=== PATIENT | male | born 1945 | race Caucasian/White ===

== ENCOUNTER 2024-05-20 16:04 | Inpatient (IN) | payer OTHER, SELFPAY ==
[2024-05-20] VITALS (31 sets, daily range): BP systolic 129–227; BP diastolic 78–126; BMI 18.6; BMI 19.1
[2024-05-20 12:03] LABS: Glucose - Point of Care 138 mg/dl (70-99)
--- NOTE | 2024-05-20 12:12 | CON.NEURO ---
Consultation
Order
Date of Consultation: 05/20/24
Requesting Provider: Jake Mitchell DO
Reason for Consult: Stroke alert
Prehospital notification: 11:58 AM.
Neurology Consultation Note.
HPI: This is a 78-year-old man who presented to [facility] on 05/20/2024 with seizure. According to EMS the patient was at the car repair and was witnessed to have a seizure with associated left-sided weakness and right gaze deviation
within half an hour before hospital arrival. According to Espinoza the patient was seen in usual state of health in the morning around 9�10 AM before he left. No reports of epilepsy, prior seizures recently stopped medications of head trauma
VS by EMS: 109/100, 90, 24, FS: 13
ER VS: 171/98, 97-108, 92% on nonrebreather
EKG: NSR, QTc Int : 440 ms
PDMP: none
Labs: Glucose�138, WBCs�11.7, normal sodium, CO2�13, creatinine�1.3, normal LFTs, troponin.
CT head wo contrast- 2 mm punctate area of hyperdensity at the davis-white junction of the right parietal lobe suspicious for petechial hemorrhage. There is sulcal effacement in the right temporoparietal junction suspicious for subacute infarct.
There is moderate diffuse cortical atrophy.
CTA head/neck no LVO, dissection, malformations or aneurysms.
PMH: prostate CA, HTN, DLP, OA, nicotine addiction, COPD,
PSH: Bilateral cataract surgery, radical prostatectomy, cholecystectomy, hernia repair, tonsillectomy
SH:, active smoker
FH: Not pertinent to current presentation
All:NKDA
ROS: Unable due to encephalopathy
General: Well developed. In no acute distress.
Cardio: Regular rate and rhythm without murmur. Extremities are without cyanosis or edema.
Neuro:
Mental Status: Awake, does not attend or follow requests. No verbal output
Cranial Nerves: Orthophoric primary gaze. No blink to threat. No clear facial weakness.
Motor: Moves all limbs antigravity left less than the right nonpurposefuly
Sensory: Unable to assess due to poor attention
Coordination: No tremors myoclonic movements
Gait: deferred
Assessment and Plan:
I. 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 Not a candidate for IV TNK due to subacute infarct, microhemorrhages and seizure.
II. Multifactorial encephalopathy (postictal, vascular, metabolic)
III. Hypertensive emergency
-Telemetry monitoring
-Cautious lowering of BP by approximately 15 % during the first 24 hours is SBP >220 mmHg or diastolic blood pressure >120 mmHg;
-Restart antihypertensive medications during if BP>140/90 mmHg who are neurologically stable in 24 to 48 hours after stroke onset;
-Seizure precautions
-Avoid medications known to lower seizure threshold
-Thiamine IV
-Please check magnesium, phosphorus, CK, urinalysis, urine tox
-Brain MRI without ciara
-Routine EEG
-Keppra load 2 g IV once followed by Keppra 750 mg twice daily IV
-Ativan 2 mg IV as needed for GTC's lasting over 2 minutes with associated hypoxia
-SCDs/TEDs
I personally reviewed all radiology and labs along with past medical records pertinent to current medical problems. Total time spent in patient care is 60 minutes.
Thank you for allowing us to participate in the care of this patient. We will continue to follow. Please do not hesitate to contact us with any questions or concerns.
Subjective/Objective
Subjective Data
Date of Service: May 20, 2024
Objective Data
Vital Signs
Pulse Resp Pulse Ox
99 27 93
05/20/24 12:05 05/20/24 12:05 05/20/24 12:05
Patient Allergies
No Allergy Information Available Allergy (Verified 05/20/24 12:08)
Medications
-
Home Medications
�Medication �Instructions �Recorded
atorvastatin 20 mg tablet (Lipitor) 20 mg PO QPM 05/20/24
azithromycin 250 mg tablet 250 mg PO Q48H 05/20/24
gabapentin 300 mg capsule 300 mg PO HS 05/20/24
meloxicam 15 mg tablet 15 mg PO DAILY 05/20/24
omeprazole 20 mg tablet,delayed 20 mg PO DAILY 05/20/24
release
umeclidinium 62.5 mcg/actuation 1 inh inhalation R DAILY 05/20/24
blister powder for inhalation
(Incruse Ellipta)
[2024-05-20] MEDS: ATIVAN 1 MG IV ×4 (12:15→19:57)
--- NOTE | 2024-05-20 12:15 | ED.CVA ---
History of Present Illness
General
Chief Complaint: CVA/TIA Symptoms
Source: ambulance crew
Exam Limitations: clinical condition
Time Seen by Provider: 05/20/24 12:03
Onset of Stroke Symptoms
Onset of symptoms known: Yes
Date of onset of symptoms: 05/20/24
History of Present Illness
History of Present Illness:
See MDM
Past History
Past History
ED Past Medical History: Hypercholesterolemia
ED Past Surgical History: None
Social History
Tobacco: Non-smoker
Alcohol: None
Phy Exam
Physical Exam
Physical Exam:
See MDM
Course
Orders/Labs/Results
Orders:
Orders
05/20/24 12:03
CT HEAD STROKE ALERT W/o Cont Urgent
Comment:
Reason For Exam: seizure and left hemiparesis
CT HEAD/NECK ANG STROKE ALERT Urgent
Comment:
Reason For Exam: seizure and left hemiparesis
NEUROLOGY CONSULT Urgent
Consulting Provider: Chiquita Royal
Was physician already notified: Yes
05/20/24 12:04
Electrocardiogram (*1) Stat
Reason for Study: Other
Other Reason for Exam: neuro symptoms
EKG- Treatment ONCE
05/20/24 12:14
Lorazepam [Ativan] 1 mg IV NOW STA
Lorazepam [Ativan] 2 mg .ROUTE .STK-MED ONE
05/20/24 12:23
Complete Blood Count/With Diff Urgent
Comprehensive Metabolic Panel Urgent
PTT Urgent
Prothrombin Time Urgent
Troponin I Urgent
05/20/24 12:27
Labetalol HCl [Trandate] 10 mg IV NOW STA
Levetiracetam Injectable [Keppra] 2,000 mg IV NOW STA
05/20/24 13:13
EEG Routine Routine
Reason for Exam: Seizure
05/20/24 13:15
Urinalysis Routine
Date Specimen was Collected: 05/20/24
Time Specimen was Collected: 13:16
Urine Drug Abuse Screen Routine
Date Specimen was Collected: 05/20/24
Time Specimen was Collected: 13:16
05/20/24 13:24
Magnesium Routine
Prolactin Routine
Total CK [Creatine Phosphokinase] Routine
05/20/24 13:28
MRI Brain [MR Brain Without Contrast] Routine
Comment:
Reason For Exam: stroke, seizure
OK for patient to be off Cardiac Monitoring for MRI: No
Recent pill cam endoscopy?: No
05/20/24 13:30
Echo 2D MMode Color/Doppler Routine
Reason for Study: Thrombotic source for stroke-like sxs
05/20/24 13:31
Lipid Profile [Cardiovascular Evaluation] Routine
05/20/24 13:32
Hemoglobin A1c [Glycohemoglobin (HgbA1c)] Routine
05/20/24 14:00
Nicotine [Nicoderm Transdermal] 21 mg TRANSDERM DAILY
Thiamine Injection 100 mg IV DAILY
05/20/24 20:00
Levetiracetam Injectable [Keppra] 750 mg IV Q12
Abnormal Lab Results
05/20/24 05/20/24 05/20/24
12:02 12:23 13:24
WBC 11.7 H 10^3/uL
(4.8-10.8)
MCHC 32.1 L g/dL
(33.0-37.0)
RDW 14.6 H %
(11.5-14.5)
Absolute Neuts (auto) 8.3 H 10^3/uL
(1.4-6.5)
Carbon Dioxide 13 L* mmol/L
(22-30)
BUN 23 H mg/dl
(9-20)
Glucose 154 H mg/dl
(70-99)
Prolactin 23.5 H ng/ml
(3.7-17.9)
POC Glucose 138 H mg/dl
(70-99)
05/20/24 12:23
05/20/24 12:23
Vital Signs
Initial and Last Documented VS:
Initial Vital Signs
Pulse Resp Pulse Ox
97 25 92
05/20/24 12:04 05/20/24 12:04 05/20/24 12:04
Last Documented Vital Signs
Temp Pulse Resp BP Pulse Ox
97.4 F 89 23 138/93 96
05/20/24 14:07 05/20/24 14:00 05/20/24 14:00 05/20/24 14:00 05/20/24 13:45
MDM/Problems Addressed
Differential Diagnosis Includes:
HPI and MDM Narrative:
78-year-old male presenting by EMS with potential stroke versus new onset seizure. Not much is known about the patient. He was at the [facility] and he had a witnessed seizure. Patient is minimally responsive and has left hemiparesis. Prearrival
stroke alert called. On arrival, patient met by myself, respiratory, nursing and neurology
On arrival, patient started to move his left hand which is new per EMS. He is confused with what appears to be a right gaze palsy. Patient sent to CT medial
Physical exam
General: Confused and combative. Not following commands
HEENT: protecting airway. Right gaze palsy with pupils equal and reactive
Neck: appears supple
CV: No evidence of cyanosis. Regular rate and rhythm
Resp: No accessory muscle use
Abd: Non-distended
Extremities: No deformities
Neuro: Awake not following commands. Decreased movement on the left side
Psych: Flat affect
Skin: Intact
Problems Addressed including Acute and Chronic Conditions affecting care:
1. Strokelike symptoms versus seizure
Acuity: acute
Prognosis: unstable
Details: CT head shows possible punctate hemorrhage versus calcification. Symptoms are improving while in the emergency department. Because of this questionable hemorrhage, patient is not a TNK candidate.
2. Hypertension
Acuity: acute
Prognosis: unstable
Details: Will continue to monitor. He was initially ordered IV labetalol but blood pressure improving on its own and it was held
3. [ ]
Acuity: acute
Prognosis: stable
Details:
4. [ ]
Acuity: acute
Prognosis: stable
Details:
5. [ ]
Acuity:
Prognosis:
Details:
Updates
12:15 PM patient becoming extremely agitated requiring IV Ativan
12:25 PM radiology initially read the Noncon CT as nonspecific and no acute abnormalities. However, radiology called immediately afterwards indicating that there is a slight possibility of a punctate hemorrhage. This was relayed to neurology. We
will not start TNK. Will start Keppra and labetalol
Symptoms are improving. It is possible that this is all related to new onset seizure. Will give dose of IV Keppra
Differential Diagnosis (but not limited to): Stroke, new onset seizure
Testing considered: UDS
Drug therapy (if applicable): OTC meds, please see d/c instruction regarding Rx drugs
Amount and/or Complexity of Data Reviewed
Clinical info obtained from: EMS
External data reviewed: N/A
Labs I independently reviewed (but not limited to): [ ]
Radiology: The CT scan was personally and independently reviewed. In addition, official CT report reviewed.
Pulse Ox: not hypoxic
EKG independently reviewed: Sinus rhythm, PVCs, normal axis
Carburetor Specialist: Sinus rhythm
Critical Care: The high probability of a clinically significant, sudden or life threatening deterioration of the neurovascular system(s) required my full and direct attention, intervention and personal management. The aggregate critical care time
was 33 minutes. This time is in addition to time spent performing reported procedures but includes the following:
[x] Data Review and interpretation
[x] Patient assessment and monitoring of vital signs
[x] Documentation
[x] Medication orders and management
Risk of Complication:
Social Determinants of health: Good social support
Discussed with other providers: Neurology, hospitalist
Escalation of Care includes Admit/Obs: After being observed in the Emergency Department, pt stable for discharge.
Occasional wrong word or 'sound a like' substitutions may have occurred due to the inherent limitations of voice recognition software. Read the chart carefully and recognize, using context, where substitutions have occurred.
*Critical Care Note
Total Time (30-74mins, 75-104mins- exclusive of procedures): 33 min
ED Attending Note
-
Portions of this chart may have been created with voice recognition software.� Occasional wrong word or��sound alike� substitutions may have occurred due to the inherent limitations of voice recognition software.
Discharge Plan
Departure
Patient Disposition: Admit
Date of Disposition: 05/20/24
Time of Disposition: 13:20
Admit to: Med/Surg
Presentation/result/management discussed w/ accepting MD/DO: Hospitalist
Discharge Problem:
New onset seizure
Prescriptions:
No Action
atorvastatin [Lipitor] 20 mg Tablet
20 mg PO QPM
azithromycin 250 mg Tablet
250 mg PO Q48H
meloxicam [Mobic] 15 mg Tablet
15 mg PO DAILY
gabapentin 300 mg Capsule
300 mg PO HS
omeprazole 20 mg Tablet,Delayed Release (Dr/Ec)
20 mg PO DAILY
Incruse Ellipta 62.5 mcg/actuation Blister With Device
1 inh INHALATION R DAILY
Referrals:
Tobi Robles PA-C [Family Provider] -
Interventions
Interventions:
*Risk Screen - Suicide Last Done: 05/20/24 12:47
*General Assessment Last Done: 05/20/24 12:44
*Neglect/Abuse Screening Last Done: 05/20/24 12:47
*ED COVID-19 Vaccine History Last Done: 05/20/24 12:44
ED- Pulmonary Assessment Last Done: 05/20/24 12:15
ED- Neurological Assessment Last Done: 05/20/24 12:15
ED- Cardiac Assessment Last Done: 05/20/24 12:15
Discharge Date and Time
Print Language: CROATIAN
[2024-05-20] MEDS: KEPPRA 2000 MG IV (12:32)
[2024-05-20 12:36] LABS: % Basophils 0.8 % (0-2); % Eosinophils 1.2 % (0-6); % Immature Granulocytes 0.3 % (0-0.5); % Lymphocytes 22.4 % (20.5-51.1); % Neutrophils 70.3 % (42.2-75.2); Absolute Basophils 0.1 10^3/uL (0-0.2); Absolute Eosinophils 0.1 10^3/uL (0-0.7); Absolute Lymphocytes 2.6 10^3/uL (1.2-3.4); Absolute Monocytes 0.6 10^3/uL (0.1-0.6); Absolute Neutrophils 8.3 10^3/uL (1.4-6.5); Hematocrit 44.2 % (39.0-52.0); Hemoglobin 14.2 g/dL (13.0-18.0); Mean Corp Hgb Conc. 32.1 g/dL (33.0-37.0); Mean Corpuscular Hgb 29.2 pg (27.0-31.0); Mean Corpuscular Volume 90.8 fL (80.0-94.0); Mean Platelet Volume 8.8 fL (7.4-10.4); Nucleated Red Blood Cells % 0 % (-); Platelet Count 270 10^3/uL (130-400); Red Blood Cell Count 4.87 10^6/uL (4.70-6.10); Red Cell Dist. Width 14.6 % (11.5-14.5); White Blood Cell Count 11.7 10^3/uL (4.8-10.8)
[2024-05-20 12:41] LABS: INR 1.04; PT 14.1 Sec (11.4-14.6)
[2024-05-20 12:42] LABS: APTT 31.9 Sec (23.4-35.0)
[2024-05-20 12:52] LABS: AST (SGOT) 21 U/L (17-59); Albumin 4.1 g/dl (3.5-5.0); Alkaline Phosphatase 94 U/L (38-126); Blood Urea Nitrogen 23 mg/dl (9-20); Calcium 8.8 mg/dl (8.4-10.2); Carbon Dioxide 13 mmol/L (22-30); Chloride 103 mmol/L (98-107); Estimated Creatinine Clearance 40 ml/min; Glucose 154 mg/dl (70-99); Potassium 3.8 mmol/L (3.5-5.1); Sodium 138 mmol/L (135-145); Total Bilirubin 0.4 mg/dl (0.2-1.3); Total Protein 7.3 g/dl (6.3-8.2); eGFR 56.58
[2024-05-20 12:53] LABS: Troponin I < 0.012 ng/ml
[2024-05-20 13:03] LABS: ALT (SGPT) < 30 U/L (0-50)
--- NOTE | 2024-05-20 13:48 | HPS.HSE ---
Family Physician
-
Family Physician: OMER SMITH PA-C
Chief Complaint
-
Seizure, confusion
History of Present Illness
78-year-old male male from [place]. I spoke with one of the repair guys named Derrick who states Mook was sitting down in a chair looking red and somewhat confused. He asked him to try to move his legs but he was having difficulty
following commands he then stood up and was saying he was fine however he was hanging on the counter as if he was going to fall he was complaining of dizziness and mentioned that he had been having dizziness ongoing for several weeks. He started to
fall to the floor so Derrick and another [employer] shop member picked him up by his pants and placed him in a chair. Shortly after they noticed that his hands started stiffening they picked him up and laid him on the floor where both hands and legs
started stiffening and shaking lasting approximately 15 minutes until EMS arrived when Kofi states he was snoring. His [place] is at bedside and states he has no history of stroke or epilepsy. She reports 3 weeks ago he complained of
bilateral temporal headache for which he took Motrin and she believes it relieved the pain. He does not suffer from chronic headaches. She states he has a chronic smoker's cough he smokes 1 pack a day for the past 62 years. She states he has been
sneezing for the past several weeks also. He has not complained of any recent sore throat, fever, chills, chest pain, palpitations, shortness breath, abdominal pain, nausea, vomiting, diarrhea, urinary symptoms. She denies any recent illness, head
trauma seizures, epilepsy. She reports he has history of neuropathy bilateral feet he was taking Motrin 400 mg 3 times a day for the past 7 years recently switched in the past 4 months to Mobic 15 mg daily and gabapentin however he still takes
Motrin when he wants she states.
According to his Mrs. 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 He has past medical history of active smoker, COPD, HLD, neuropathy bilateral feet, prostate cancer status post
prostatectomy 2004,
Medical History
Past Medical History
Past Medical History: Reports Other
Additional Past Medical History:
COPD on chronic azithromycin 250 every 48 H
Active smoker
HLD
Neuropathy bilateral feet
GERD
Prostate cancer status post prostatectomy 2004
Past Surgical History: Reports Other
Additional Past Surgical History:
Tonsillectomy
Appendectomy
Cholecystectomy
Hernia repair unknown if abdomen or groin
Prostatectomy status post prostate cancer 2004
Cataract extraction with lens implants bilateral
Social History
Tobacco: Smoker (1 pack/day 62 years)
Alcohol: None
Drug: None
Personal:
Living: With Family ( [place])
Employment: Retired
Family History
Family History: Other (Mother CHF in her 80s, father CHF in 80s, 1 sister brain CA, CVA, DM 2 age 69, 1 brother living DM2, 2 brothers and 2 sisters alive in their 70s unsure medical problems)
Allergies / Home Medications
Allergies reflects when Allergies were last updated in [facility].
Home Medications with original date entered in [facility]
Allergy/Medication List:
Allergies
Allergy/AdvReac Type Severity Reaction Status Date / Time
No Known Allergies Allergy Verified 05/20/24 12:48
Home Medications
Motrin 400 mg PO TID 05/20/24
Motrin PM 200 mg PO HS PRN legpain 05/20/24
atorvastatin 20 mg tablet (Lipitor) 20 mg PO QPM 05/20/24
azithromycin 250 mg tablet 250 mg PO Q48H 05/20/24
diphenhydramine HCl 38 mg PO HS PRN foot pain 05/20/24
gabapentin 300 mg capsule 300 mg PO HS 05/20/24
meloxicam 15 mg tablet 15 mg PO DAILY 05/20/24
omeprazole 20 mg tablet,delayed release 20 mg PO DAILY 05/20/24
umeclidinium 62.5 mcg/actuation blister powder for inhalation (Incruse Ellipta) 1 inh inhalation R DAILY 05/20/24
Review of Systems
-
History Source: Family ( [place]) and Other (Worker at [employer] auto named Kofi)
A 12 point ROS was completed and negative except as noted: Yes
Constitutional: Reports Fatigue; Denies Fever or Chills
EENT: Reports Other (Hands and legs became rigid at [employer] shop lasting 15 minutes with prior confusion and dizziness); Denies Sore Throat or Runny Nose
Respiratory: Reports Cough; Denies Trouble Breathing
Cardiac: Denies Chest Pain, Diaphoresis, Palpitations or Syncope
Abdomen/GI: Denies Abdominal Pain, Nausea, Vomiting or Diarrhea
: Denies Dysuria, Frequency, Flank Pain, Incontinence or Difficulty Voiding
Musculoskeletal: Denies Joint Pain or Edema
Skin: Denies Itching or Rash
Neurological: Reports Dizzy; Denies Headache or Weakness
Endocrine: Reports No Symptoms
Hematologic/Lymphatic: Reports No Symptoms
Physical Exam
Vital Signs
Vital Signs
Pulse Resp BP Pulse Ox
85 19 141/86 98
05/20/24 13:30 05/20/24 13:30 05/20/24 13:30 05/20/24 13:30
Physical Exam
General: Conversant and Other (Confused, agitated trying to pull off EEG leads, heart monitor leads asking repetitive questions does know his name and [place] does not recall earlier events of today); No Fever or Chills
HEENT: NormoCephalic, Anicteric, Moist mucous membranes, PERRLA, Byars Conjunctivae, No Ptosis and Other (Appears to have left-sided neglect difficult to follow review of systems or EOMs due to confusion); No Thrush
Respiratory: Clear and Rhonchi (Bilaterally throughout both lung frost); No Wheezes or Rales
Cardiac: S1/S2 and Regular Rhythm; No Murmur, Rub, Gallop or Peripheral Edema
Breast: Deferred by me
GI: Soft, Non Tender, Non Distended, Normal Bowel Sounds and No Hepatosplenomegaly
Rectal: Deferred by Provider
Genito-urinary: Deferred by me
Musculoskeletal: No Clubbing, No Cyanosis and No Edema
Skin: Warm and Dry; No Rash or Jaundice
Neuro: Awake, Alert (Confused does know his name, 's name asks repetitive questions difficulty following review of systems appears to have left-sided neglect visually but is moving all extremities with 5 out of 5 upper and lower strength),
Cranial Nerves Intact and No Sensory Deficits; No Slurred Speech, Facial Droop, Tremors or Sedated
Psych: Confused and Agitated
Laboratory Results
-
05/20/24 12:23
05/20/24 12:23
Laboratory Results
PT 14.1 Sec (11.4-14.6) 05/20/24 12:
INR 1.04 05/20/24 12:23
APTT 31.9 Sec (23.4-35.0) 05/20/24 12:23
Total Bilirubin 0.4 mg/dl (0.2-1.3) 05/20/24 12:23
AST 21 U/L (17-59) 05/20/24 12:23
ALT < 30 U/L (0-50) 05/20/24 12:23
Alkaline Phosphatase 94 U/L (38-126) 05/20/24 12:23
Troponin I < 0.012 ng/ml 05/20/24 12:23
Impression/Plan
-
Impression/plan:
Admit to IMU
#Acute stroke with acute seizure-
#Metabolic acidosis secondary to likely seizure activity
-Consult neurology
-EEG completed at bedside
--MRI brain without contrast
-2D echo
-Lipid profile, HgbA1c
-UA IT NETWORK ADMINISTRATOR, UDS, influenza, COVID swab
-Check CXR
-IV Keppra 2000 mg given in ER continue Keppra 750 mg IV twice daily
-Patient agitated requiring IV Ativan
-Speech swallow eval
-Consult PT/OT/case management
-Hold Motrin 400 mg 3 times daily, Mobic [address] head wo contrast- 2 mm punctate area of hyperdensity at the davis-white junction of the RIGHT PARITEAL suspicious for Petechial hemorrhage.
There is sulcal effacement in the right temporoparietal junction suspicious for subacute infarct.
There is moderate diffuse cortical atrophy.
CTA head/neck no LVO, dissection, malformations or aneurysms.
#COPD on chronic azithromycin
-Patient follows with [place] [facility]
-Continue Incruse Ellipta
-Patient on chronic azithromycin to 50 mg p.o. every 48 H
#Snoring with multiple episodes stopping breathing at night per concern for sleep apnea
-Recommend follow-up with patient's cartridge feeder for sleep study
#Nicotine abuse
62-year 1 pack/day smoker
-NicoDerm 21 mg transdermal patch
#HLD
-Check lipid profile
-Continue atorvastatin 20 mg every afternoon
#Neuropathy bilateral feet
Continue gabapentin 300 mg at bedtime
-Hold Motrin 400 mg 3 times daily
-Hold Motrin PM 200-38 mg Benadryl
-Hold Mobic 15 mg daily
#GERD-continue omeprazole 20 mg daily
DVT prophylaxis
SCDs
DNR per [place] at bedside
[2024-05-20 13:50] LABS: Creatine Phosphokinase 61 U/L (55-170)
[2024-05-20 13:51] LABS: Magnesium 1.8 mg/dl (1.6-2.3)
[2024-05-20 14:05] LABS: Prolactin 23.5 ng/ml (3.7-17.9)
--- NOTE | 2024-05-20 14:14 | W.PN.UPDATE ---
Update Note
Progress Note Update
This is an addendum to H&P written by NOTE TELLER Doretha Mccartney
I saw and examined the patient.
The NOTE TELLER's note was reviewed and I agree with the note.
Comment:
Mr. Mook Doran is a 78 yo man with hx HLD presents to the ER with new onset seizure.
Triage vitals stable. Labs with WBC 11.7, Hg 14.2, PLT 270, Na 138, K+ 3.8, Cl 103, CO2 13; AG = 22, BUN 23, Cr 1.3, Glucose 154, Ca 8.8, Mag 1.8 , prolactin 23.5.
On exam patient is awake, CECIL, moving all extremities but not follow commands. He is confused and not oriented to place.
CT Head:
IMPRESSION:
There is a 2 mm punctate area of hyperdensity at the davis-white junction of the right parietal lobe suspicious for petechial hemorrhage.
There is sulcal effacement in the right temporoparietal junction suspicious for subacute infarct.
There is moderate diffuse cortical atrophy with extensive nonspecific white matter changes as described above.
Head/Neck CTA
IMPRESSION:
There are no vascular abnormalities.
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
MAR: IV Labetalol, Keppra 2G x 1, Ativan 1mg IV x 1
New onset Seizure
Subacute MCA Territory stroke
Concern for 2mm petechial hemorrhage right parietal lobe
-appreciate neurology
-not a TNK candidate 2/2 subacute infarct and possible finding petechial hemorrhage
-admit to IMU
-seizure precautions and neuro checks
-s/p 2G IV Keppra load followed by 750mg IV q12
-hold off on anti-PLT until MRI complete to confirm if hemorrhage versus calcification - discussed with neurology
-ativan PRN
-MRI with [place] ordered
-Routine EEG
Anion Gap metabolic Acidosis
-likely elevated lactate in setting of convulsive seizure - will obtain lactate now and trend
DVT PPx SCD
DNR
76 minutes spent on patient care
[2024-05-20] MEDS: NSS (PRESERVATIVE FREE) 0.5 ML IV (14:35)
--- NOTE | 2024-05-20 14:52 | W.PN.UPDATE ---
Update Note
Progress Note Update
Asked to review imaging on Mr. Bradley
I favor the hyperdensity in his right parietal lobe to represent calcification
No need for transfer
[2024-05-20 15:51] LABS: HDL Cholesterol 50 mg/dl; LDL Cholesterol, Calculated 70 mg/dl; Total Cholesterol 143 mg/dl (50-199); Triglyceride 116 mg/dl (10-149); Very Low Density Lipoprotein 23 mg/dl (0-30)
[2024-05-20] MEDS: THIAMINE INJECTION 100 MG IV (16:22)
[2024-05-20] MEDS: NICODERM TRANSDERMAL 21 MG TRANSDERM (16:24)
--- NOTE | 2024-05-20 16:30 | W.PN.UPDATE ---
Update Note
Progress Note Update
Will upgrade to ICU
-Despite chemical restraint Ativan patient attempting to get out of bed pull at monitor leads is at risk for fall, harm
[2024-05-20 16:39] LABS: COVID-19 Antigen Negative (Negative)
[2024-05-20 16:49] LABS: Urine Albumin Negative (Neg - Trace); Urine Bilirubin Negative (Negative); Urine Character Clear (Clear); Urine Color Yellow; Urine Glucose Negative (Negative); Urine Ketone Negative (Negative); Urine Leukocyte Negative (Negative); Urine Nitrite Negative (Negative); Urine Occult Blood Negative (Negative); Urine Specific Gravity 1.015 (<1.030); Urine Urobilinogen Negative (Neg - 1+); Urine pH 6.5 (5.0-9.0)
[2024-05-20 16:56] LABS: Lactic Acid 1.2 mmol/L (0.7-2.0)
[2024-05-20 17:42] LABS: Amphetamines Negative (Negative); Barbiturates Negative (Negative); Benzodiazepines Negative (Negative); Buprenorphine Negative (Negative); Cocaine Negative (Negative); Marijuana Negative (Negative); Methadone Negative (Negative); Methamphetamines Negative (Negative); Opiates Negative (Negative); Phencyclidine Negative (Negative); Tricyclic Antidepressants Negative (Negative)
--- NOTE | 2024-05-20 18:32 | PTCARENOTE ---
Pt arrived from ED via stretcher. Transferred over to unit bed by staff. Pt able to say 'Alex' when repeatedly asked what his name is. Guessed [facility] for location. Pt unable to follow commands. Restless. Pupils 3mm and reactive to
light. Full strength in all extremities. Pushing and pulling on bed rails. Attempting to remove gown, get out of bed. B/L upper extremity soft limb restraints in place. SaO2 98% on room air. Lungs diminished. Sinus tach on high school coach. No
edema observed. Palpable pedal pulses. B/L pinky toes purple. Cap refill > 2 seconds. Pt with smear of bowel movement upon admission. Condom catheter #25 placed on patient. Left upper extremity #18 with (+) flush and blood return.
[2024-05-20] MEDS: NSS 1000 IV (18:51)
[2024-05-20] MEDS: LIPITOR PO (18:53)
[2024-05-20] MEDS: KEPPRA 750 MG IV (20:03)
--- NOTE | 2024-05-20 20:26 | EEGC.RPT ---
Continuous EEG Report
Recording
Start Date of Data Reviewed: 05/20/24
Done with Video Recording: Yes
Electrocardiogram: Unremarkable
Report
�
TECHNICAL REMARKS:��This is a technically satisfactory eighteen channel record employing 21 disc electrodes applied according to a measured international 10-20 electrode placement system.��There were no significant technical difficulties.��The study
was done on a Realtime Technology System.
STUDY DURATION:
MEDICATIONS: Keppra, lorazepam
CLINICAL HISTORY: This is a 78-year-old man with seizure. This study was requested to look for epileptiform activity.
REPORT: �At the onset of the EEG, the patient is in altered mental status. The background activity consists of 4-4.5 Hz, impersistent, posteriorly dominant, moderate amplitude, symmetric, and rhythmic activity. Continuous generalized, 2-3 Hz, 30-50
uV polymorphic delta activity with admixed generalized excessive beta activity was present.� Stepwise intermittent photic stimulation did not induce additional abnormalities. Hyperventilation was not performed. No epileptiform activity was seen.�
Multiple muscle artifacts were present limited precise characterization of the record.
�
IMPRESSION: �This is an abnormal EEG recorded in the patient in drowsy state due to a moderate to severe generalized slowing. This finding indicates diffuse cerebral dysfunction, nonspecific in terms of etiology.
--- NOTE | 2024-05-20 21:00 | PTCARENOTE ---
On assessment pt AAO to self only, very agitated and restless in bed, confused conversation at time and garbled speech, b/l wrist restraints on per orders, pt attempting to climb out of bed and pull out IV lines and condom catheter. CHEMICAL PRODUCTION MACHINE OPERATOR made aware
and at bedside, PRN meds given see JUL, ST on the monitor, 98% RA, denies pain and SOB when pt is able to respond, L arm skin tear noted, b/l pinky toes purple and b/l lower extremity cool CHEMICAL PRODUCTION MACHINE OPERATOR aware. bed alarm on and call ortega in reach
[2024-05-20] MEDS: NEURONTIN PO (21:06)
[2024-05-20 23:40] LABS: Blood Urea Nitrogen 19 mg/dl (9-20); Calcium 7.3 mg/dl (8.4-10.2); Carbon Dioxide 23 mmol/L (22-30); Chloride 111 mmol/L (98-107); Estimated Creatinine Clearance 53 ml/min; Glucose 97 mg/dl (70-99); Magnesium 1.5 mg/dl (1.6-2.3); Potassium 3.7 mmol/L (3.5-5.1); Sodium 138 mmol/L (135-145); eGFR > 60.00
[2024-05-21] VITALS (20 sets, daily range): BP systolic 121–176; BP diastolic 77–114; BMI 17.9
[2024-05-21] MEDS: LR 1000 IV ×2 (00:04→13:36)
[2024-05-21] MEDS: ATIVAN 1 MG IV (00:04)
[2024-05-21] MEDS: MAGNESIUM SULFATE 50 IV (00:04)
--- NOTE | 2024-05-21 00:30 | PTCARENOTE ---
pt continues to be anxious and restless in bed, PRN ativan given see JUL, bed alarm on and call ortega in reach
[2024-05-21 05:12] LABS: % Basophils 0.6 % (0-2); % Eosinophils 1.6 % (0-6); % Immature Granulocytes 0.3 % (0-0.5); % Lymphocytes 19.2 % (20.5-51.1); % Monocytes 5.3 % (1.7-9.3); Absolute Basophils 0.1 10^3/uL (0-0.2); Absolute Eosinophils 0.2 10^3/uL (0-0.7); Absolute Lymphocytes 2.1 10^3/uL (1.2-3.4); Absolute Monocytes 0.6 10^3/uL (0.1-0.6); Hematocrit 39.9 % (39.0-52.0); Hemoglobin 13.5 g/dL (13.0-18.0); Mean Corp Hgb Conc. 33.8 g/dL (33.0-37.0); Mean Corpuscular Hgb 29.2 pg (27.0-31.0); Mean Corpuscular Volume 86.2 fL (80.0-94.0); Mean Platelet Volume 8.8 fL (7.4-10.4); Nucleated Red Blood Cells % 0 % (-); Platelet Count 208 10^3/uL (130-400); Red Blood Cell Count 4.63 10^6/uL (4.70-6.10); Red Cell Dist. Width 14.2 % (11.5-14.5); White Blood Cell Count 10.9 10^3/uL (4.8-10.8)
[2024-05-21 05:34] LABS: ALT (SGPT) 11 U/L (0-50); AST (SGOT) 23 U/L (17-59); Albumin 3.6 g/dl (3.5-5.0); Alkaline Phosphatase 107 U/L (38-126); Blood Urea Nitrogen 21 mg/dl (9-20); Calcium 8.9 mg/dl (8.4-10.2); Carbon Dioxide 24 mmol/L (22-30); Chloride 105 mmol/L (98-107); Estimated Creatinine Clearance 41 ml/min; Glucose 107 mg/dl (70-99); Magnesium 2.5 mg/dl (1.6-2.3); Potassium 4.3 mmol/L (3.5-5.1); Sodium 138 mmol/L (135-145); Total Bilirubin 0.6 mg/dl (0.2-1.3); Total Protein 6.9 g/dl (6.3-8.2); eGFR > 60.00
--- NOTE | 2024-05-21 06:05 | PTCARENOTE ---
pt was restless most of the night, baseline NIH was 5, EEO OFFICER made aware, pt speaking more clearly but still confused, pt remains in b/l wrist restraints, bed alarm on.
[2024-05-21 06:11] LABS: Vitamin B12 581 pg/ml (239-931)
[2024-05-21] MEDS: NICODERM TRANSDERMAL 21 MG TRANSDERM (07:35)
[2024-05-21] MEDS: KEPPRA 750 MG IV ×2 (07:35→20:52)
[2024-05-21] MEDS: THIAMINE INJECTION 100 MG IV (07:35)
[2024-05-21] MEDS: ZITHROMAX PO (07:36)
--- NOTE | 2024-05-21 07:42 | CON.INTV ---
Consultation
Consultation Request
Date/Time Consultation Requested: 05/21/2024-7:30 AM
Date/Time Consultation Performed: 05/21/2024-7:30 AM
Requesting Provider: Hospitalist
Performing Provider: Dr. Dhaliwal
Reason for Consultation: CVA
Medical History
-
Chief Complaint: CVA/seizure
History of Present Illness:
78-year-old smoking male with underlying COPD followed by Dr. Goldman who also has hyperlipidemia, neuropathy, prostate cancer not feeling well for several weeks who developed confusion, near syncope, and developed seizure lasting possibly 15
minutes found to have CVA and crop quantitative geneticist consulted for CVA/critical care management 05/21/2024. Patient is quite lethargic and possibly postictal and review of systems was unobtainable. No respiratory distress
Past Medical History
Past Medical History: None (COPD. Active cigarette smoker. Hyperlipidemia. Bilateral feet neuropathy. GERD. Prostate cancer/prostatectomy 2004. Tonsillectomy. Appendectomy. Cholecystectomy. Hernia repair. Cataract.)
Social History
Tobacco: Former Smoker ( [id number] ongoing)
Alcohol: None
Drug: None
Personal:
Living: With Family
Occupational Exposures: No known asbestos exposure
Environmental Exposures: No known tuberculosis exposure
Family History
Family History: Other (Mother-CHF. Father-CHF. Sister-brain cancer, CVA and diabetes. Brother-diabetes.)
Allergies / Home Medications
Allergies
Allergy/AdvReac Type Severity Reaction Status Date / Time
No Known Allergies Allergy Verified 05/20/24 12:48
Home Medications
�Medication �Instructions �Recorded �Confirmed �Last Taken �Type
Motrin 400 mg PO TID Pain 05/20/24 05/20/24 Unknown History
Motrin PM 200 mg PO HS PRN legpain 05/20/24 05/20/24 05/19/24 21:00 History
atorvastatin 20 mg tablet (Lipitor) 20 mg PO QPM High Cholesterol 05/20/24 05/20/24 Unknown History
azithromycin 250 mg tablet 250 mg PO Q48H Lung/Breathing 05/20/24 05/20/24 Unknown History
Issues
diphenhydramine HCl 38 mg PO HS PRN foot pain 05/20/24 05/20/24 05/19/24 21:00 History
gabapentin 300 mg capsule 300 mg PO HS Pain 05/20/24 05/20/24 Unknown History
meloxicam 15 mg tablet 15 mg PO DAILY Pain 05/20/24 05/20/24 Unknown History
omeprazole 20 mg tablet,delayed 20 mg PO DAILY Gastrointestinal 05/20/24 05/20/24 Unknown History
release Issue
umeclidinium 62.5 mcg/actuation 1 inh inhalation R DAILY 05/20/24 05/20/24 Unknown History
blister powder for inhalation Lung/Breathing Issues
(Incruse Ellipta)
Review of Systems
-
Unable to Obtain full review of systems at this time due to: Other (Per HPI)
Vitals / Labs / Diagnostic Testing
Vital Signs
Temp Pulse Resp BP Pulse Ox
97.4 F 68 19 141/89 97
05/21/24 07:35 05/21/24 06:00 05/21/24 06:00 05/21/24 06:00 05/21/24 06:00
Lab Data
05/21/24 04:43
05/21/24 04:43
Laboratory Results
05/20/24
12:23
PT 14.1
INR 1.04
APTT 31.9
Microbiology
05/20/24 16:12 Nasal Swab Influenza Types A & B (FARHANA) - Final
Negative for Influenza A & B, NAAT
Negative results must be combined with clinical observations
and patient history.
Nucleic Acid Amplification test (NAAT)performed on the
[email or web address] platform.
Diagnostic Testing:
Physical Exam
-
Exam:
Cachectic elderly gentleman in no apparent distress
HEENT-atraumatic, normocephalic, temporal wasting, cachexia
Neck-supple, no JVD, no bruit
Heart-regular rate and rhythm-systolic murmur
Chest with diminished breath sounds, prolonged expiratory time, no crackles or wheezes
Back without tenderness
Abdomen-soft, nontender, nondistended, no hepatosplenomegaly
Extremities-no cyanosis, clubbing, edema and good peripheral pulses
Integument-intact, no rashes, lesions or ecchymosis
Neurologically lethargic, moving extremities, grossly nonfocal
Assessment
-
78-year-old smoking male with underlying COPD followed by Dr. Goldman who also has hyperlipidemia, neuropathy, prostate cancer not feeling well for several weeks who developed confusion, near syncope, and developed seizure lasting possibly 15
minutes found to have CVA and crop quantitative geneticist consulted for CVA/critical care management 05/21/2024.
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
Acute/subacute right parietal lobe cortical hemorrhage suggestive of amyloid cerebral angiopathy
Symptomatic seizure
Metabolic acidosis
COPD without acute exacerbation
Mild leukocytosis-WBC 11.7
Mild hyperglycemia
DNR
Conditions present prior to admission:
COPD.
Bronchiectasis
Active cigarette smoker.
Hyperlipidemia.
Bilateral feet neuropathy.
GERD.
Prostate cancer/prostatectomy 2004.
Tonsillectomy. Appendectomy. Cholecystectomy. Hernia repair. Cataract.
Plan
Patient critically ill with acute CVA and seizure
Supplemental oxygen
Aspiration precautions
Speech therapy evaluation
Nebulizers if needed-currently not bronchospastic
Chronic azithromycin for his underlying COPD
Neurology evaluation-correspondence reviewed
EEG 05/20/2024-abnormal patient in drowsy state with moderate to severe generalized slowing, no obvious seizures
Keppra 750 mg twice daily
Repeat CT head before initiating aspirin 81 mg daily for stroke prophylaxis
Echocardiogram pending
Cardiology consultation
No driving for 6 months
Smoking cessation counseling
Nicotine patch if needed
Chantix has been offered in the past-states son was suicidal on this medication
Monitor blood sugar
Insulin supplementation as needed
DVT prophylaxis
GI prophylaxis
Nutrition
Physical therapy/occupational/speech therapy
If no progression neurologically and no further seizures the patient could be transferred out of ICU-call pulmonary if respiratory issues arise
Patient last saw Dr. Goldman 10/23/2023-instructed to follow-up in October 2024 with PFTs and 6-minute walk test
Critical care statement: A total of 40 minutes of critical care time was provided for this patient today. This includes management of unstable vital signs, evaluation of the patient at bedside, reviewing the patient's pertinent medical records
including radiographs, microbiology, laboratory evaluations, and discussion with primary team, consultants, pharmacy, nutrition, physical therapy, case management, charge nurse, critical care nursing, and respiratory therapy.
Diagnostic data:
Chest x-ray 05/20/2024-mild diffuse pneumonitis cannot rule out underlying chronic interstitial lung disease
CT head 05/20/24-2 mm hyperdensity at the davis-white junction of the right parietal lobe suspicious for petechial hemorrhage, right temporoparietal junction suspicious for subacute infarct and moderate diffuse atrophy
CT head and neck angiogram 05/20/2024-no vascular anomalies, emphysema with pleural-parenchymal scarring at both lung apices
MRI brain 05/20/2024-small acute lacunar infarct left cerebellum, chronic microhemorrhages primarily involving bilateral cerebral hemisphere suggestive of cerebral amyloid angiopathy
Echocardiogram 11/07/2021-EF 50-55%, mild mitral regurgitation
Holter monitor 10/22/2021-Short SVT-14 beat, occasional ectopy
CT scan of the chest-03/28/21: Images reviewed. No evidence of nodule to suggest malignancy.Stable emphysema.Stable bilateral lower lobe volume loss with bronchiectasis and endobronchial mucus plugging.Other areas of interstitial and nodular mucus
plugging/tree-in-bud opacities which may represent Mycobacterium avium complex..Lung RADS category 1..
CT scan of the chest-03/28/22: Bilateral bronchiectasis. Moderate severity centrilobular and paraseptal emphysema. Peribronchial thickening, airway filling defects and posterior subpleural atelectasis/consolidation redemonstrated. Symmetrical
bronchiectasis in the middle lobe and lingula. Mild severity branching nodular opacities in the posterior right upper lobe. Findings consistent with chronic small airways infectious/inflammatory process..
CT scan of the chest-04/10/23: Report only. Jose. Areas of bronchiectasis and mucus plugging within the right upper lobe mildly WORSE than previously.Right and left lower lobe bronchiectasis with mucus plugging, peribronchial thickening and
subpleural atelectasis/consolidation has IMPROVED since prior examination. Findings consistent with inflammatory/infectious processes.
Pulmonary function studies-04/24/23: Spirometry demonstrated mild obstructive lung disease. This was primarily small airways obstruction. The forced vital capacity was 3.83 L or 99% of predicted. The FEV1 was 2.64 L or 95% of predicted. The FEV1/FVC
ratio was 64% before bronchodilator and 70% after bronchodilator. There was a 7% improvement in the FEV1 postbronchodilator. The lung volumes revealed a normal total lung capacity of 5.9 L or 88% of predicted. The diffusing capacity was severely
reduced at 5.9 L or 24% of predicted.
Data Reviewed
-
PFT: Report reviewed by me
EKG: Report reviewed by me
Radiology: Report reviewed by me
CT Scan: Image personally visualized and interpreted and Report reviewed by me
MRI: Report reviewed by me
Medical Tests (Nuc Med, Echo etc): Image personally visualized and interpreted
Labs: Labs reviewed by me and Discussed with Physician
Old Records: Reviewed
Critical Care Time (in minutes): 55
[2024-05-21] MEDS: SPIRIVA RESPIMAT 2.5 MCG 2 PUFF INH (08:20)
--- NOTE | 2024-05-21 09:37 | PTCARENOTE ---
Addendum entered by Kathleen Avila RN 05/21/24 10:12:
no seizure pads on unit, call to [facility]. pillows placed on side rails for patient safety
Original Note:
report received, assessments per work list. patient lethargic, but arousable after increased stimulation. intermittently trying to climb out of bed, pull at lines. restraints maintained for patient safety.neuro check, NIH per work list. neurologist
in, orders noted. moist productive cough, large amount thick yellow brooks sputum. aspiration precautions maintained. coarse breath sounds. unable to safely administer am medications. abdomen flat, hyperactive bowel sounds. smear of stool. condom cath
in place, draining yellow urine. bed alarm maintained for patient safety. ST in to evaluate patient
--- NOTE | 2024-05-21 10:05 | W.PN.NEURO.1 ---
Today's Communication / Plan
-
.
Subjective/Objective
Subjective Data
Date of Service: May 21, 2024
Neurology follow-up note.
24h events: no recurrent seizures. The patient has been intermittently agitated requiring restraints and Lorazepam 1 mg on 05/20/24 at 16:19, 19:57 and 05/21/24 at 00:04.
VS Tmax�180/126 on 05/20/2024 at 21:46, afebrile
Brain MRI wo [facility](05/20/2024)-small acute lacunar infarct of the left cerebellum, innumerable chronic microhemorrhages primarily involving the bilateral cerebral hemispheres; 2 mm acute to subacute bleed in the right parietal lobe and T2/FLAIR
hyperintensities of the right parietal lobe and bilateral occipital lobe. T2/FLAIR hyperintense signal in the white matter of the right parietal lobe and bilateral occipital lobes. Differential considerations include inflammatory cerebral amyloid
angiopathy, posterior reversible encephalopathy syndrome (PRES), or probably less likely gliosis secondary to chronic infarcts.
Labs: LDL-70, WBC 11.7-, neg ua tox, 10.9, Mg-1.5-2.5, CK�61.
Routine EEG (05/20/2024)�generalized slowing with excessive beta activity.
PMH: prostate CA, HTN, DLP, OA, nicotine addiction, COPD,
PSH: Bilateral cataract surgery, radical prostatectomy, cholecystectomy, hernia repair, tonsillectomy
SH:, active smoker
FH: Not pertinent to current presentation
All:NKDA
ROS: Negative for headache, change in strength, vision or sensation.
General: Well developed. In no acute distress.
Cardio: Regular rate and rhythm without murmur. Extremities are without cyanosis or edema.
Neuro:
Mental Status: Awake, oriented to self, location, month, year. Impaired attention, preserved comprehension. Follows simple requests consistently. Nonfluent. No hemineglect.
Cranial Nerves: Orthophoric primary gaze. Pupils 3 mm, surgical. Extraocular movement intact. Mild right facial weakness, hearing is impaired, minimal dysarthria.
Motor: Moves all limbs antigravity left less than the right nonpurposefuly
Sensory: Unable to assess due to poor attention
Coordination: No tremors myoclonic movements
Gait: deferred
Assessment and Plan:
I. Acute left small SCA territory infarct. 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
II. Acute/subacute right parietal lobe cortical hemorrhage in addition to chronic innumerable bihemispheric microhemorrhages suggestive of amyloid cerebral angiopathy
II. Multifactorial encephalopathy (vascular, toxic), significantly improved
III. Symptomatic seizure
-Telemetry monitoring
-Avoid hypomagnesemia,
-Continue Keppra 750 mg twice daily
-Repeat CT head without contrast known before starting aspirin 81 mg once a day for stroke prophylaxis.
-TTE
-Avoid systemic anticoagulation in view of probable cerebral amyloid angiopathy
-Cardiology consult�Holter monitor
-No driving for 6 months
-SCDs/TEDs
I personally reviewed all radiology and labs along with past medical records pertinent to current medical problems. Total time spent in patient care is 35 minutes.
Thank you for allowing us to participate in the care of this patient. We will continue to follow. Please do not hesitate to contact us with any questions or concerns.
Objective Data
Vital Signs
Temp Pulse Resp BP Pulse Ox
36.3 C 76 19 144/96 97
05/21/24 07:35 05/21/24 08:45 05/21/24 08:45 05/21/24 08:00 05/21/24 08:45
Lab Results
05/21/24 04:43
05/21/24 04:43
PT 14.1 Sec (11.4-14.6) 05/20/24 12:23
INR 1.04 05/20/24 12:23
APTT 31.9 Sec (23.4-35.0) 05/20/24 12:23
Sodium 138 mmol/L (135-145) 05/21/24 04:43
Potassium 4.3 mmol/L (3.5-5.1) 05/21/24 04:43
BUN 21 mg/dl (9-20) H 05/21/24 04:43
Glucose 107 mg/dl (70-99) H 05/21/24 04:43
Calcium 8.9 mg/dl (8.4-10.2) D 05/21/24 04:43
LDL Cholesterol, Calc Cancelled 05/20/24 13:31
Vitamin B12 581 pg/ml (239-931) 05/21/24 04:43
Ur Buprenorphine Negative (Negative) 05/20/24 16:42
Patient Allergies
No Known Allergies Allergy (Verified 05/20/24 12:48)
Vital Signs and Labs
-
Vital Signs and Labs:
Vital Signs
Temp Pulse Resp BP Pulse Ox
36.3 C 76 19 144/96 97
05/21/24 07:35 05/21/24 08:45 05/21/24 08:45 05/21/24 08:00 05/21/24 08:45
Lab Results
05/21/24 04:43
05/21/24 04:43
PT 14.1 Sec (11.4-14.6) 05/20/24 12:23
INR 1.04 05/20/24 12:23
APTT 31.9 Sec (23.4-35.0) 05/20/24 12:23
Sodium 138 mmol/L (135-145) 05/21/24 04:43
Potassium 4.3 mmol/L (3.5-5.1) 05/21/24 04:43
BUN 21 mg/dl (9-20) H 05/21/24 04:43
Glucose 107 mg/dl (70-99) H 05/21/24 04:43
Calcium 8.9 mg/dl (8.4-10.2) D 05/21/24 04:43
LDL Cholesterol, Calc Cancelled 05/20/24 13:31
Vitamin B12 581 pg/ml (327-321) 05/21/24 04:43
Ur Buprenorphine Negative (Negative) 05/20/24 16:42
Medications
-
Medications:
Generic Name Dose Route Start Last Admin
Trade Name Freq PRN Reason Stop Dose Admin
Acetaminophen 650 mg 05/20/24 17:47
Acetaminophen 325 Mg Tablet PO 06/17/24 17:46
Q4HPRN PRN
mild pain/GILMAN/temp> 100.4F
Atorvastatin Calcium 20 mg 05/20/24 18:00 05/20/24 18:53
Atorvastatin (Lipitor) 20 Mg Tablet PO 06/17/24 17:59 Not Given
QPM [facility]
Azithromycin 250 mg 05/21/24 08:00 05/21/24 07:36
Azithromycin 250 Mg Tablet PO Not Given
Q48H [facility]
Gabapentin 300 mg 05/20/24 22:00 05/20/24 21:06
Gabapentin 300 Mg Capsule PO 06/17/24 21:59 Not Given
HS [facility]
Lactated Ringer's 1,000 mls @ 80 mls/hr 05/20/24 23:45 05/21/24 00:04
Lr IV 1,000 mls
.[id number] [facility] Administration
Levetiracetam 750 mg 05/20/24 20:00 05/21/24 07:35
Levetiracetam (100 Mg/Ml) 500 Mg/5 Ml Vial IV 06/17/24 19:59 750 mg
Q12 [facility] Administration
Lorazepam 1 mg 05/20/24 17:47 05/21/24 00:04
Lorazepam 2 Mg/Ml Vial IV 06/17/24 17:46 1 mg
Q4HPRN PRN Administration
Agitation/seizure
Nicotine 21 mg 05/20/24 14:00 05/21/24 07:35
Nicotine 21 Mg Patch TRANSDERM 06/17/24 13:59 21 mg
DAILY [facility] Administration
Ondansetron HCl 4 mg 05/20/24 17:47
Ondansetron 4 Mg/2 Ml Vial IV 06/17/24 17:46
Q6HPRN PRN
nausea and vomiting
Pantoprazole Sodium 40 mg 05/21/24 08:00 05/21/24 07:35
Pantoprazole 40 Mg Delayed Release Tablet PO 06/18/24 07:59 Not Given
DAILY [facility]
Sodium Chloride 0 ml 05/20/24 19:00
Sodium Chloride 0.9% (Preservative Free) 10 Ml Vial IV 06/17/24 18:59
PRN PRN
IV Lorazepam dilution
Protocol
Sodium Chloride 0 flush 05/20/24 19:00
Sodium Chloride 0.9% (Flush) Syringe IV 06/17/24 18:59
PER PROTOCOL [facility]
Thiamine HCl 100 mg 05/20/24 14:00 05/21/24 07:35
Thiamine (100 Mg/Ml) 2 Ml Vial IV 05/22/24 08:01 100 mg
DAILY [facility] Administration
Tiotropium [place] 2 puff 05/21/24 08:00 05/21/24 08:20
Tiotropium (Spiriva Respimat) 2.5 Mcg Inhaler INH 06/18/24 07:59 2 puff
R DAILY [facility] Administration
Protocol
Home Medications
-
Home Medications
Motrin 400 mg PO TID Pain 05/20/24
Motrin PM 200 mg PO HS PRN legpain 05/20/24
atorvastatin 20 mg tablet (Lipitor) 20 mg PO QPM High Cholesterol 05/20/24
azithromycin 250 mg tablet 250 mg PO Q48H Lung/Breathing Issues 05/20/24
diphenhydramine HCl 38 mg PO HS PRN foot pain 05/20/24
gabapentin 300 mg capsule 300 mg PO HS Pain 05/20/24
meloxicam 15 mg tablet 15 mg PO DAILY Pain 05/20/24
omeprazole 20 mg tablet,delayed release 20 mg PO DAILY Gastrointestinal Issue 05/20/24
umeclidinium 62.5 mcg/actuation blister powder for inhalation (Incruse Ellipta) 1 inh inhalation R DAILY Lung/Breathing Issues 05/20/24
--- NOTE | 2024-05-21 10:22 | PTOTSP ---
SPEECH THERAPY SWALLOW AND SPEECH/LANGUAGE/COGNITIVE COMMUNICATION EVALUATION:
Patient exhibits clinical signs of severe oropharyngeal dysphagia, likely [id number] related to subacute Right MCA CVA/focal seizure and multifactorial encephalopathy, and history of COPD/GERD. Patient remains at HIGH RISK for aspiration and
related complications given lethargy and impaired cognitive status at this time. Recommend strict NPO at this time. Non-oral medications. Consider temporary alternate means for nutrition/hydration. ST to follow, re-assess in 24 hours, determine
readiness for oral diet and/or instrumental assessment of swallowing as appropriate.
Patient exhibits moderate-severe receptive/expressive language impairments, mild-moderate speech impairments (dysarthria), and severe cognitive communication impairments characterized by deficits in the following areas: Attention, orientation,
processing speed, auditory comprehension, verbal expression, STM, initiation and elaboration. Impairments are related to subacute Right MCA CVA/seizure and multifactorial encephalopathy, and exacerbated by lethargy. Assessment limited at this time
given lethargy. Recommend continued assessment of higher level cognitive/language skills as lethargy/attention improve. ST to follow at the acute care level, and recommend continued ST services upon discharge.
RECOMMEND:
1) strict NPO
2) Non-oral medications
3) Consider temporary alternate means for nutrition/hydration
4) ST to follow, re-assess in 24 hours, determine readiness for oral diet and/or instrumental assessment of swallowing as appropriate
5) ST to follow for speech/language/cognitive communication therapy
[2024-05-21 10:39] LABS: Glycohemoglobin (HgbA1c) 6.2 % (4.0-5.6)
--- NOTE | 2024-05-21 11:53 | CM ---
CM following re: discharge planning.
Reviewed pt's chart, met with pt. Pt's spouse, son and daughter in law at bedside.
Pt is a 78 year old male, admitted with primary dx of Seizure, acute CVA. Per Rounds meeting, patient lethargic, but arousable after increased stimulation. intermittently trying to climb out of bed, pull at lines. restraints maintained for patient
safety, continue supportive care.
Pt is not a great historian, lethargic, sleeping. Information obtained from pt's family. Pt lives with spouse 2SH, 5 steps to enter, has 3 supportive children. 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 No DME, VN or SNF
history.
PT, OT, ST will evaluate the pt to determine a level of care at discharge.
PCP: Tobi Robles
Pharmacy: [facility]
D/C plan: uncertain at this time and will depend on pt's progress. Probably acute level of rehab.
CM will follow with discharge plan updates as hospitalization progresses
--- NOTE | 2024-05-21 12:05 | CON.INTV ---
Consultation
Consultation Request
Date/Time Consultation Requested: 05/20/24
Date/Time Consultation Performed: 05/21/24
Requesting Provider: SENG Beltran
Performing Provider: Jacqui Ambriz MD
Reason for Consultation: Acute stroke along acute seizure
Medical History
-
History of Present Illness:
The patient is a 78-year-old smoking male with a past medical history of COPD, hyperlipidemia, neuropathy, prostate cancer who presented to ER after developed possibly 15 minutes length seizure. Per patient's friend, at the beginning the patient
seemed confused and then fall down to the floor. Following the patient started stiffening and shaking his both hands and legs about for 15 minutes until EMS has arrived. Per patient's family the patient has no history of stroke or epilepsy but he
has been smoking for past 62 years and has a chronic cough. Brain MRI and Head CT was obtained from the patient which was significant for a small acute lacunar infarct of the left cerebellum and acute/subacute right parietal lobe cortical
hemorrhage. The post graduate internship was consulted for CVA/critical care management 05/21/2024.
Past Medical History
Past Medical History: COPD (on chronic azithromycin 250 every 48 H), GERD, Hypercholesterolemia and Other (Neuropathy bilateral feet, prostat cancer status post prostatectomy 2004 )
Past Surgical History: Other (Tonsillectomy Appendectomy Cholecystectomy Hernia repair unknown if abdomen or groin Prostatectomy status post prostate cancer 2004 Cataract extraction with lens implants bilateral)
Social History
Tobacco: Smoker (Active -[id number] (1 pack/daily))
Alcohol: None
Drug: None
Personal:
Living: With Family
Employment: Retired
Occupational Exposures: No known asbestos exposure
Environmental Exposures: No known tuberculosis exposure
Family History
Family History: Other (Mother CHF in her 80s, father CHF in 80s, 1 sister brain CA, CVA, DM 2 age 69, 1 brother living DM2, 2 brothers and 2 sisters alive in their 70s unsure medical problems)
Allergies / Home Medications
Allergies
Allergy/AdvReac Type Severity Reaction Status Date / Time
No Known Allergies Allergy Verified 05/20/24 12:48
Home Medications
�Medication �Instructions �Recorded �Confirmed �Last Taken �Type
Motrin 400 mg PO TID Pain 05/20/24 05/20/24 Unknown History
Motrin PM 200 mg PO HS PRN legpain 05/20/24 05/20/24 05/19/24 21:00 History
atorvastatin 20 mg tablet (Lipitor) 20 mg PO QPM High Cholesterol 05/20/24 05/20/24 Unknown History
azithromycin 250 mg tablet 250 mg PO Q48H Lung/Breathing 05/20/24 05/20/24 Unknown History
Issues
diphenhydramine HCl 38 mg PO HS PRN foot pain 05/20/24 05/20/24 05/19/24 21:00 History
gabapentin 300 mg capsule 300 mg PO HS Pain 05/20/24 05/20/24 Unknown History
meloxicam 15 mg tablet 15 mg PO DAILY Pain 05/20/24 05/20/24 Unknown History
omeprazole 20 mg tablet,delayed 20 mg PO DAILY Gastrointestinal 05/20/24 05/20/24 Unknown History
release Issue
umeclidinium 62.5 mcg/actuation 1 inh inhalation R DAILY 05/20/24 05/20/24 Unknown History
blister powder for inhalation Lung/Breathing Issues
(Incruse Ellipta)
Review of Systems
-
Unable to Obtain full review of systems at this time due to: Other (Due patient`s being lethargic. )
Vitals / Labs / Diagnostic Testing
Vital Signs
Temp Pulse Resp BP Pulse Ox
97.6 F 80 19 149/85 98
05/21/24 11:19 05/21/24 11:15 05/21/24 11:15 05/21/24 11:00 05/21/24 11:15
Lab Data
05/21/24 04:43
05/21/24 04:43
Laboratory Results
05/20/24
12:23
PT 14.1
INR 1.04
APTT 31.9
Microbiology
05/20/24 16:12 Nasal Swab Influenza Types A & B (FARHANA) - Final
Negative for Influenza A & B, NAAT
Negative results must be combined with clinical observations
and patient history.
Nucleic Acid Amplification test (NAAT)performed on the
[employer] platform.
Diagnostic Testing:
Physical Exam
-
HEENT: Normocephalic, Anicteric and Other (Neck supple, No JVD, no bruit )
Cardiovascular: S1/S2 and Regular Rhythm
Respiratory: Clear and Other (Decreased breath sounds )
GI: Soft, Non Distended and Non Tender
Neurology: Other (Lethargic ) and Other (moving extremities , grossly nonfocal )
Skin: Warm and Dry
Assessment
-
Assessment:
78-year-old smoking male with an underlying COPD presented to ER after he had developed confusion and an episode of probably 15 minutes of seizure. He was obtained head CT and cranial MRI which confirmed CVA and he was admitted to the ICU for
CVA/critical care management. No history of seizure or syncopal episodes. No respiratory distress.
Acute left small SCA territory infarct. 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
Acute/subacute right parietal lobe cortical hemorrhage suggestive of amyloid cerebral angiopathy
Symptomatic seizure
Metabolic acidosis
COPD without acute exacerbation
Mild leukocytosis-WBC 11.7
Mild hyperglycemia
Hypomagnesemia
DNR
Plan
Patient is still critically due acute CVA and a seizure episode
#Acute Encephalopathy likely vascular vs toxic
-Reported improvement with mental status by Neurology likely multifactorial
-Head CT:Right parietal lobe suspicious for petechial hemorrhage.
-Brain MRI: Small acute lacunar infarct left cerebellum, chronic microhemorrhages suggestive of cerebral amyloid angiopathy
-First EEG showed no epileptiform activity-follow EEG showed 'generalized slowing with excessive beta activity' which typically typically indicates a pattern of diffuse brain disc dysfunction
-Continue Keppra 750 mg twice daily
-Repeating head CT was planned before starting aspirin 81 mg as stroke prophylaxis
-Cardio input would be appreciated
-TTE with bubble study to check a possible FO
-Telemetry monitoring
# Leukocytosis
-Trending down from 11.7 to 10.9
-No fever
# Pneumonitis
-Chest X ray:05/20/2024-mild diffuse pneumonitis cannot rule out underlying chronic interstitial lung disease
-COPD without acute exacerbation
-No fever, WBC decreased
-No respiratory distress
-Supplemental oxygen if needed
-Nebulizers if needed-currently not bronchospastic
-Continue Chronic azithromycin for his underlying COPD
-Aspiration precautions
#Others
-hypomagnesemia: Resolved
-hyperglycemia: Resolved
-Nicotine patch if needed
-Monitor blood sugar-Insulin supplementation as needed
-Monitor Electrolyte levels including Mg
-DVT prophylaxis
-GI prophylaxis
-Nutrition
-Physical therapy/occupational/speech therapy
--- NOTE | 2024-05-21 12:32 | PTCARENOTE ---
patient reassessed. intermittently agitated, then lethargic. per spouse patient has had a right sided facial droop for 'years'. taken and returned from CT scan. neurologist updated by angel paulino
[2024-05-21] MEDS: NSS (PRESERVATIVE FREE) 10 ML IV (12:39)
[2024-05-21] MEDS: PROTONIX IV 40 MG IV (12:39)
[2024-05-21] MEDS: TYLENOL/FEVERALL 650 MG RECTAL (16:21)
[2024-05-21] MEDS: LIPITOR PO (16:40)
--- NOTE | 2024-05-21 16:40 | PTCARENOTE ---
assessments unchanged. medicated with tylenol per prn order. patient downgrade to tele level of care. spouse updated
--- NOTE | 2024-05-21 18:31 | TRANSFER ---
transfer to [facility] after phone report called. handoff [facility] completed
--- NOTE | 2024-05-21 18:48 | W.PN.HOSP.TC ---
Addendum entered and electronically signed by Andrew Jaramillo MD 05/21/24 21:00:
Attending Addendum-
I saw and evaluated the patient. I reviewed the resident�s note and agree with findings and plan as documented in the resident�s note. Sub: was agitated overnight and required ativan and had to be placed in restraints/mitts.. Seen with family
present including /POA. H/O from . No further seizure activity. Patient is minimally responsive likely due to med effect. Able to be aroused easily. Has no complaints. Full 12 point ROS reviewed and negative except as documented Exam: Vitals
reviewed in chart GEN-NAD heart RRR lungs clear abd soft LE no edema Neuro minimally responsive able to follow commands intermittently
Plan:
#Acute stroke with acute seizure-NEW
#Metabolic acidosis-resolved
-neurology input appreciated
-EEG completed
-MRI brain without contrast 05/20-Small acute lacunar infarct of the left cerebellum.
Innumerable chronic microhemorrhages primarily involving the bilateral cerebral hemispheres in a distribution most suggestive of cerebral amyloid angiopathy. The 2 mm focus of hyperattenuation in
the right parietal lobe on the recent CT likely reflects minor acute to subacute blood products related to amyloid angiopathy.
T2/FLAIR hyperintense signal in the white matter of the right parietal lobe and bilateral occipital lobes. Differential considerations include inflammatory cerebral amyloid angiopathy, posterior reversible encephalopathy syndrome (PRES), or probably
less likely gliosis secondary to chronic infarcts.
-2D echo
-continue Keppra 750 mg IV twice daily
-Patient agitated requiring IV Ativan
-Speech swallow eval- cont NPO for now
-Consult PT/OT/case management
-CTA head/neck no LVO, dissection, malformations or aneurysms.
-repeat CT 05/21-Stable examination. No significant change in confluent parietal white matter diminished attenuation, right greater than left, and small focus of subcortical white matter increased attenuation in the lateral right parietal lobe. No
mass effect
-start asa due to neg CT
-cont statin
#Leukocytosis
- resolving
- likely reactive
# Hypomagnesemia
- resolved s/p repletion
#COPD on chronic azithromycin
- not in AE
-Patient follows with [place] [facility]
-Continue Incruse Ellipta
-Patient on chronic azithromycin to 50 mg p.o. every 48 H
#Nicotine abuse
63-year 1 pack/day smoker
-NicoDerm 21 mg transdermal patch
#HLD
-Check lipid profile- LDL 70
-Continue atorvastatin 20 mg every afternoon
#Neuropathy bilateral feet
Continue gabapentin 300 mg at bedtime when more awake
-Hold Motrin 400 mg 3 times daily
-Hold Motrin PM 200-38 mg Benadryl
-Hold Mobic 15 mg daily
#GERD-continue omeprazole 20 mg daily
DVT prophylaxis
SCDs
DNR per
ACP
Patient unable to consented to discuss, d/w POA/ at great length, time spent explanation of advance directives, changes in health status, patient�s health care wishes if the patient becomes unable to make health decisions, goals of care, code
status, and prognosis 'he said he wouldn't want that' - 16 minutes
Time spent coordinating care, review of plan of care with resident, personally reviewed previous records in EMR, med rec, labs, radiology, d/w nursing, family total time documented is exclusive of any additional time listed that was spent in advance
care planning discussion -�52 minutes
Original Note:
Today's Communication/Plan
-
.
Assessment / Plan
Assessment / Plan
# Acute Ischemic Stroke
- Brain MRI: Small acute lacunar infarct of the left cerebellum, chronic microhemorrhages suggestive of cerebral amyloid angiopathy
- Head CT (initial): Right parietal lobe hyperattenuation suspicious for petechial hemorrhage. (Read by neurosurgeon, suggested to be calcification)
-Repeat head CT (today): No interval change. Restart ASA 81 mg as stroke prophylaxis.
- Patient being followed by neurology for stroke workup/new onset seizure
- NIH stroke scale ranges from 5-6 over the past 16 hours.
- As patient returns to baseline alertness, monitor for residual neurologic deficits.
- PT/OT/speech/swallow when appropriate
- Consider cardiology consult, 2D echo
# Poststroke seizure
- No history of epilepsy
- First EEG showed no epileptiform activity; following EEG showed generalized slowing. Consider that this is status post Keppra and Ativan
- Continue Keppra 750 mg twice daily
# COPD on chronic azithromycin
- Continue Incruse Ellipta, azithromycin 250 Mg p.o. every 48 hours
# Leukocytosis
-Trending down, afebrile
# Tobacco use disorder
-[id number] history
-NicoDerm 21 mg transdermal patch
# Peripheral neuropathy
-Continue gabapentin 300 mg at bedtime
# GERD
-Continue omeprazole 20 mg daily
SCDs/n.p.o./DNR
Anticipated Discharge: 24 - 48 hours
Subjective/Interval History
-
Date of Service: May 21, 2024
Patient seen and examined in the a.m. while in bed. First interaction, patient was somnolent and trying to take off mitts in order to leave bed, but followed commands and was able to answer some, but not all questions.
Second interaction, family at bedside, patient asleep. Per , patient appeared fine prior to leaving the house and having the inciting event at the [employer]. She does note however, that patient had headache a couple of weeks prior to arrival
that seemed worse than usual.
Objective Data
-
Vital Signs:
Vital Signs
Temp Pulse Resp BP Pulse Ox
97.9 F 87 16 154/86 95
05/21/24 18:25 05/21/24 18:25 05/21/24 18:25 05/21/24 18:25 05/21/24 18:43
I&O
05/20/24 05/21/24 05/22/24
06:59 06:59 06:59
Intake Total 0 / 0 980 / 980
Output Total 850 / 850 750 / 750
Balance -850 / -850 230 / 230
Review of Systems
-
Unable to obtain full review of systems at this time due to: Other (somnolence)
Physical Exam
-
General: Other (somnolent)
HEENT: Normocephalic and Atraumatic
Respiratory: Clear to Auscultation
Cardiac: Regular Rhythm and S1/S2
GI: Soft and Nondistended
Musculoskeletal: No Clubbing, No Cyanosis and No Edema
Skin: Warm
Neuro: Other (lethargic, able to follow some directions, grossly nonfocal, EOMI, moving all fours, global weakness but symmetric)
Psych: Calm
Data Reviewed
-
Diagnostic Radiology: Report Reviewed by me
CT Scan: Report Reviewed by me
MRI: Report Reviewed by me
Labs: Labs Reviewed by me
[2024-05-21] MEDS: NEURONTIN PO (19:59)
[2024-05-22] MEDS: LR 1000 IV (00:35)
[2024-05-22 03:46] VITALS: BP 140/83
[2024-05-22 05:53] VITALS: BMI 18.6
[2024-05-22 07:48] LABS: Hematocrit 37.5 % (39.0-52.0); Hemoglobin 12.8 g/dL (13.0-18.0); Mean Corp Hgb Conc. 34.1 g/dL (33.0-37.0); Mean Corpuscular Hgb 29.4 pg (27.0-31.0); Mean Corpuscular Volume 86.2 fL (80.0-94.0); Mean Platelet Volume 8.6 fL (7.4-10.4); Platelet Count 192 10^3/uL (130-400); Red Blood Cell Count 4.35 10^6/uL (4.70-6.10); Red Cell Dist. Width 14.6 % (11.5-14.5); White Blood Cell Count 11.5 10^3/uL (4.8-10.8)
[2024-05-22 08:11] LABS: Blood Urea Nitrogen 18 mg/dl (9-20); Calcium 8.5 mg/dl (8.4-10.2); Carbon Dioxide 26 mmol/L (22-30); Chloride 105 mmol/L (98-107); Estimated Creatinine Clearance 43 ml/min; Glucose 79 mg/dl (70-99); Potassium 4.3 mmol/L (3.5-5.1); Sodium 138 mmol/L (135-145); eGFR > 60.00
[2024-05-22 08:25] VITALS: BP 131/87
[2024-05-22] MEDS: SPIRIVA RESPIMAT 2.5 MCG 2 PUFF INH (08:51)
[2024-05-22] MEDS: NICODERM TRANSDERMAL 21 MG TRANSDERM (09:34)
[2024-05-22] MEDS: KEPPRA 750 MG IV ×2 (09:37→20:39)
[2024-05-22] MEDS: PROTONIX IV 40 MG IV (09:40)
[2024-05-22] MEDS: NSS (PRESERVATIVE FREE) 10 ML IV (09:40)
[2024-05-22] MEDS: THIAMINE INJECTION 100 MG IV (09:44)
[2024-05-22] MEDS: ASPIRIN 300 MG RECTAL (09:46)
--- NOTE | 2024-05-22 12:06 | W.PN.HOSP.TC ---
Today's Communication/Plan
-
monitor vitals
see plan
make aspirin rectally
speech to see
NPO for now
neurology following
would need rehab
Assessment / Plan
Assessment / Plan
Acute stroke with acute seizure-NEW
#Metabolic acidosis-resolved
-neurology input appreciated
-EEG completed
-MRI brain without contrast 05/20-Small acute lacunar infarct of the left cerebellum.
Innumerable chronic microhemorrhages primarily involving the bilateral cerebral hemispheres in a distribution most suggestive of cerebral amyloid angiopathy. The 2 mm focus of hyperattenuation in
the right parietal lobe on the recent CT likely reflects minor acute to subacute blood products related to amyloid angiopathy.
T2/FLAIR hyperintense signal in the white matter of the right parietal lobe and bilateral occipital lobes. Differential considerations include inflammatory cerebral amyloid angiopathy, posterior reversible encephalopathy syndrome (PRES), or probably
less likely gliosis secondary to chronic infarcts.
-2D echo
-continue Keppra 750 mg IV twice daily
-Patient agitated requiring IV Ativan
-Speech swallow eval- cont NPO for now
-CTA head/neck no LVO, dissection, malformations or aneurysms.
-repeat CT 05/21-Stable examination. No significant change in confluent parietal white matter diminished attenuation, right greater than left, and small focus of subcortical white matter increased attenuation in the lateral right parietal lobe. No
mass effect
-start asa due to neg CT; made aspirin rectally as cannot do p.o.
-cont statin when able
If continues to fail speech then likely will need dobhoff
echo per neurology
might benefit from holter monitor
gentle hydration
#Leukocytosis
- likely reactive
monitor
# Hypomagnesemia
- resolved s/p repletion
#COPD on chronic azithromycin
- not in AE
-Patient follows with [place] [facility]
-Continue Incruse Ellipta
-Patient on chronic azithromycin to 50 mg p.o. every 48 H
#Nicotine abuse
63-year 1 pack/day smoker
-NicoDerm 21 mg transdermal patch
#HLD
-lipid profile- LDL 70
-Continue atorvastatin 20 mg every afternoon
#Neuropathy bilateral feet
Continue gabapentin 300 mg at bedtime when more awake
-Hold Motrin 400 mg 3 times daily
-Hold Motrin PM 200-38 mg Benadryl
-Hold Mobic 15 mg daily
#GERD-continue omeprazole 20 mg daily
DVT prophylaxis
SCDs; start pharm ppx when ok with neurology
DNR per
PT/OT rec acute rehab; would need PMNR eval friday
General: Lethargic at times
HEENT: Normocephalic and Atraumatic
Respiratory: Clear to Auscultation
Cardiac: Regular Rhythm and S1/S2
GI: Soft and Nondistended
Musculoskeletal: No Edema
Neuro: Able to follow some directions,forgetful
Psych: Calm
Anticipated Discharge: > 48 hours
Subjective/Interval History
-
Date of Service: May 22, 2024
lethargic
Objective Data
-
Labs:
Laboratory Results
05/22/24
07:34
WBC 11.5 H
Hgb 12.8 L
Hct 37.5 L
Plt Count 192
Sodium 138
Potassium 4.3
Chloride 105
Carbon Dioxide 26
BUN 18
Creatinine 1.2
Glucose 79
Calcium 8.5
Vital Signs:
Vital Signs
Temp Pulse Resp BP Pulse Ox
97.6 F 95 18 131/87 96
05/22/24 08:25 05/22/24 08:53 05/22/24 08:53 05/22/24 08:25 05/22/24 08:53
I&O
05/21/24 05/22/24 05/23/24
06:59 06:59 06:59
Intake Total 0 / 0 980 / 980
Output Total 850 / 850 1230 / 1230
Balance -850 / -850 -250 / -250
[2024-05-22 12:37] VITALS: BP 145/90
[2024-05-22] MEDS: D5/0.9% SODIUM CHLORIDE 1000 IV (14:35)
--- NOTE | 2024-05-22 15:31 | PTOTSP ---
Speech Therapy
Presentation: Patient was positioned upright in his bed. Patient was oriented. SURVEY DATA TECHNICIAN noted dysarthric speech but intelligible. Patient's facial strength appeared to be WNL bilaterally.
Swallowing Function: Patient was observed with several ice chips, tsp of thins, straw sips of thin, and bites of puree in which patient appeared to tolerate as he did not exhibit any overt clinical s/sx of aspiration or difficulty with mastication/
manipulation. Patient's vocal quality remained WNL during the session; no overt indicated of wet vocal quality. Swallowing initiation was WNL and timely with all presentations. No additional solid presentations were trialed due to concern for
reported wax/ wane mentation. Will upgrade solids pending presentation and tolerance.
Recommendations:
1) Trial of IDDSI 4; puree solids and thin liquids
2) Assistance/supervision with PO
3) Medications as tolerated
4) Consideration of VSE if clinically indicated
Plan: SURVEY DATA TECHNICIAN will continue to follow; pending hospitalization.
--- NOTE | 2024-05-22 15:35 | W.PN.NEURO.1 ---
Today's Communication / Plan
-
.
Subjective/Objective
Subjective Data
Date of Service: May 22, 2024
Neurology follow-up note.
24h events: Mr. Doran reports no headaches. He is eager to go home and is not interested in smoking cessation.
No recurrent seizures.
TTE-pending.
Routine EEG (05/20/2024)�generalized slowing with excessive beta activity.
LDL-70.
PMH: prostate CA, HTN, DLP, OA, nicotine addiction, COPD,
PSH: Bilateral cataract surgery, radical prostatectomy, cholecystectomy, hernia repair, tonsillectomy
SH:, active smoker
FH: sister-spasmodic dysphonia
All:NKDA
ROS: Negative for headache, change in strength, vision or sensation, significant chronic speech changes, disorientation
General: Well developed. In no acute distress.
Cardio: Regular rate and rhythm without murmur. Extremities are without cyanosis or edema.
Neuro:
Mental Status: Awake, oriented to self, location, month, year. Impaired attention, preserved comprehension. Follows simple requests consistently. Nonfluent. No hemineglect.
Cranial Nerves: Orthophoric primary gaze. Pupils 3 mm, surgical. Extraocular movements intact. Mild right facial weakness, hearing is impaired, spasmodic dysphonia
Motor: Moves all limbs antigravity
Sensory: Unable to assess due to poor attention
Coordination: No tremors myoclonic movements
Gait: deferred
Assessment and Plan:
I. Acute left small SCA territory infarct. 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 Shortest possible course with DOAC can be considered before left atrial appendage occlusion IF A-Fib/A-Flutter diagnosed.
II. 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 Shortest
possible course with DOAC for A-Fib/A-Flutter can be still considered before left atrial appendage occlusion.
II. Multifactorial encephalopathy (vascular, toxic). CAA is a common co-pathology of Alzheimer's disease.
III. S/p acute symptomatic seizure
IV. Spasmodic dysphonia
-Telemetry monitoring
-Continue Keppra 750 mg twice daily
-TTE
-Start ASA 81mg QD and repeat Ct head wo contrast in 3 days of sooner if any change in neuro exam.
-Continue Lipitor 20 mg QHS. Treatment with statins does not appear to increase the risk of primary ICH or to negatively impact prognosis in CAA patients
-Please contact neurology service after TTE is completed.
-Cardiology consult�Holter monitor
-Continue nicotine patch
-No driving
-SCDs/TEDs
I personally reviewed all radiology and labs along with past medical records pertinent to current medical problems. Total time spent in patient care is 35 minutes.
Thank you for allowing us to participate in the care of this patient. Please do not hesitate to contact us with any questions or concerns
Objective Data
Vital Signs
Temp Pulse Resp BP Pulse Ox
37.1 C 90 20 145/90 92
05/22/24 12:37 05/22/24 12:37 05/22/24 12:37 05/22/24 12:37 05/22/24 12:37
Lab Results
05/22/24 07:34
05/22/24 07:34
PT 14.1 Sec (11.4-14.6) 05/20/24 12:23
INR 1.04 05/20/24 12:23
APTT 31.9 Sec (23.4-35.0) 05/20/24 12:23
Sodium 138 mmol/L (135-145) 05/22/24 07:34
Potassium 4.3 mmol/L (3.5-5.1) 05/22/24 07:34
BUN 18 mg/dl (9-20) 05/22/24 07:34
Glucose 79 mg/dl (70-99) 05/22/24 07:34
Calcium 8.5 mg/dl (8.4-10.2) 05/22/24 07:34
LDL Cholesterol, Calc Cancelled 05/20/24 13:31
Vitamin B12 581 pg/ml (515-931) 05/21/24 04:43
Ur Buprenorphine Negative (Negative) 05/20/24 16:42
Patient Allergies
No Known Allergies Allergy (Verified 05/20/24 12:48)
Vital Signs and Labs
-
Vital Signs and Labs:
Vital Signs
Temp Pulse Resp BP Pulse Ox
37.1 C 90 20 145/90 92
05/22/24 12:37 05/22/24 12:37 05/22/24 12:37 05/22/24 12:37 05/22/24 12:37
Lab Results
05/22/24 07:34
05/22/24 07:34
PT 14.1 Sec (11.4-14.6) 05/20/24 12:23
INR 1.04 05/20/24 12:23
APTT 31.9 Sec (23.4-35.0) 05/20/24 12:23
Sodium 138 mmol/L (135-145) 05/22/24 07:34
Potassium 4.3 mmol/L (3.5-5.1) 05/22/24 07:34
BUN 18 mg/dl (9-20) 05/22/24 07:34
Glucose 79 mg/dl (70-99) 05/22/24 07:34
Calcium 8.5 mg/dl (8.4-10.2) 05/22/24 07:34
LDL Cholesterol, Calc Cancelled 05/20/24 13:31
Vitamin B12 581 pg/ml (146-931) 05/21/24 04:43
Ur Buprenorphine Negative (Negative) 05/20/24 16:42
Medications
-
Medications:
Generic Name Dose Route Start Last Admin
Trade Name Freq PRN Reason Stop Dose Admin
Acetaminophen 650 mg 05/21/24 11:51 05/21/24 16:21
Acetaminophen 650 Mg Rectal Suppository RECTAL 06/18/24 11:50 650 mg
Q4HPRN PRN Administration
mild pain/GILMAN/temp> 100.4F
Aspirin 81 mg 05/22/24 08:00 05/22/24 09:34
Aspirin 81 Mg Chewable Tablet PO 06/19/24 07:59 Not Given
DAILY [facility]
Aspirin 300 mg 05/22/24 10:00 05/22/24 09:46
Aspirin 300 Mg Rectal Suppository RECTAL 06/19/24 09:59 300 mg
DAILY [facility] Administration
Atorvastatin Calcium 20 mg 05/20/24 18:00 05/21/24 16:40
Atorvastatin (Lipitor) 20 Mg Tablet PO 06/17/24 17:59 Not Given
QPM [facility]
Azithromycin 250 mg 05/21/24 08:00 05/21/24 07:36
Azithromycin 250 Mg Tablet PO Not Given
Q48H [facility]
Gabapentin 300 mg 05/20/24 22:00 05/21/24 19:59
Gabapentin 300 Mg Capsule PO 06/17/24 21:59 Not Given
HS [facility]
Hydralazine HCl 5 mg 05/22/24 13:42
Hydralazine 20 Mg/Ml Vial IV 06/19/24 13:41
Q6HPRN PRN
SBP>160
Dextrose/Sodium Chloride 1,000 mls @ 50 mls/hr 05/22/24 14:00 05/22/24 14:35
D5/0.9% Sodium Chloride IV 1,000 mls
.Q20H [facility] Administration
Levetiracetam 750 mg 05/20/24 20:00 05/22/24 09:37
Levetiracetam (100 Mg/Ml) 500 Mg/5 Ml Vial IV 06/17/24 19:59 750 mg
Q12 [facility] Administration
Lorazepam 1 mg 05/20/24 17:47 05/21/24 00:04
Lorazepam 2 Mg/Ml Vial IV 06/17/24 17:46 1 mg
Q4HPRN PRN Administration
Agitation/seizure
Nicotine 21 mg 05/20/24 14:00 05/22/24 09:34
Nicotine 21 Mg Patch TRANSDERM 06/17/24 13:59 21 mg
DAILY [facility] Administration
Ondansetron HCl 4 mg 05/20/24 17:47
Ondansetron 4 Mg/2 Ml Vial IV 06/17/24 17:46
Q6HPRN PRN
nausea and vomiting
Pantoprazole Sodium 40 mg 05/21/24 12:00 05/22/24 09:40
Protonix 40 Mg Iv Push IV 06/18/24 11:59 40 mg
DAILY [facility] Administration
Sodium Chloride 0 ml 05/20/24 19:00
Sodium Chloride 0.9% (Preservative Free) 10 Ml Vial IV 06/17/24 18:59
PRN PRN
IV Lorazepam dilution
Protocol
Sodium Chloride 0 flush 05/20/24 19:00
Sodium Chloride 0.9% (Flush) Syringe IV 06/17/24 18:59
PER PROTOCOL [facility]
Sodium Chloride 10 ml 05/21/24 12:00 05/22/24 09:40
Sodium Chloride 0.9% (Preservative Free) 10 Ml Vial IV 06/18/24 11:59 10 ml
DAILY [facility] Administration
Tiotropium [place] 2 puff 05/21/24 08:00 05/22/24 08:51
Tiotropium (Spiriva Respimat) 2.5 Mcg Inhaler INH 06/18/24 07:59 2 puff
R DAILY [facility] Administration
Protocol
Home Medications
-
Home Medications
Motrin 400 mg PO TID Pain 05/20/24
Motrin PM 200 mg PO HS PRN legpain 05/20/24
atorvastatin 20 mg tablet (Lipitor) 20 mg PO QPM High Cholesterol 05/20/24
azithromycin 250 mg tablet 250 mg PO Q48H Lung/Breathing Issues 05/20/24
diphenhydramine HCl 38 mg PO HS PRN foot pain 05/20/24
gabapentin 300 mg capsule 300 mg PO HS Pain 05/20/24
meloxicam 15 mg tablet 15 mg PO DAILY Pain 05/20/24
omeprazole 20 mg tablet,delayed release 20 mg PO DAILY Gastrointestinal Issue 05/20/24
umeclidinium 62.5 mcg/actuation blister powder for inhalation (Incruse Ellipta) 1 inh inhalation R DAILY Lung/Breathing Issues 05/20/24
[2024-05-22 15:54] VITALS: BP 138/95
[2024-05-22] MEDS: LIPITOR 20 MG PO (17:27)
[2024-05-22 19:35] VITALS: BP 136/83
[2024-05-22] MEDS: NEURONTIN 300 MG PO (20:42)
[2024-05-22] MEDS: ATIVAN 1 MG IV (21:54)
[2024-05-22 23:53] VITALS: BP 136/83
[2024-05-23] VITALS (7 sets, daily range): BP systolic 125–148; BP diastolic 74–95; PULSE 85–90; BMI 18.7
[2024-05-23] MEDS: SPIRIVA RESPIMAT 2.5 MCG 2 PUFF INH (08:31)
[2024-05-23] MEDS: NICODERM TRANSDERMAL 21 MG TRANSDERM (09:12)
[2024-05-23] MEDS: LOW STRENGTH ASPIRIN 81 MG PO (09:12)
[2024-05-23] MEDS: KEPPRA 750 MG IV ×2 (09:13→20:30)
[2024-05-23] MEDS: NSS (PRESERVATIVE FREE) 10 ML IV (09:22)
[2024-05-23] MEDS: PROTONIX IV 40 MG IV (09:22)
[2024-05-23] MEDS: ZITHROMAX 250 MG PO (09:27)
[2024-05-23] MEDS: D5/0.9% SODIUM CHLORIDE IV (12:10)
[2024-05-23] MEDS: ASPIRIN RECTAL (12:11)
--- NOTE | 2024-05-23 12:17 | W.PN.HOSP.TC ---
Today's Communication/Plan
-
Monitor vital signs see plan
PT/OT
Continue aspirin
Echo
Discussed with spouse at bedside
Assessment / Plan
Assessment / Plan
Acute stroke with acute seizure-NEW
#Metabolic acidosis-resolved
-neurology input appreciated
-EEG completed
-MRI brain without contrast 05/20-Small acute lacunar infarct of the left cerebellum.
Innumerable chronic microhemorrhages primarily involving the bilateral cerebral hemispheres in a distribution most suggestive of cerebral amyloid angiopathy. The 2 mm focus of hyperattenuation in
the right parietal lobe on the recent CT likely reflects minor acute to subacute blood products related to amyloid angiopathy.
T2/FLAIR hyperintense signal in the white matter of the right parietal lobe and bilateral occipital lobes. Differential considerations include inflammatory cerebral amyloid angiopathy, posterior reversible encephalopathy syndrome (PRES), or probably
less likely gliosis secondary to chronic infarcts.
-2D echo, pending
-continue Keppra 750 mg twice daily
-Patient agitated requiring Ativan. Now mental status much improved
-Speech swallow eval-currently on pur�ed. Advance diet as suitable per speech
-CTA head/neck no LVO, dissection, malformations or aneurysms.
-repeat CT 05/21-Stable examination. No significant change in confluent parietal white matter diminished attenuation, right greater than left, and small focus of subcortical white matter increased attenuation in the lateral right parietal lobe. No
mass effect
-start asa due to neg CT; switch rectal aspirin to p.o. now that can take p.o
-cont statin when able
echo
might benefit from holter monitor
DC further hydration now that he is on pureed
should not drive for alteast 6 months,needs to be seizure free
#Leukocytosis
- likely reactive
monitor
# Hypomagnesemia
- resolved s/p repletion
#COPD on chronic azithromycin
- not in AE
-Patient follows with [facility]
-Continue Incruse Ellipta
-Patient on chronic azithromycin to 50 mg p.o. every 48 H
#Nicotine abuse
63-year 1 pack/day smoker
-NicoDerm 21 mg transdermal patch
#HLD
-lipid profile- LDL 70
-Continue atorvastatin 20 mg every afternoon
#Neuropathy bilateral feet
Continue gabapentin 300 mg at bedtime when more awake
-Hold Motrin 400 mg 3 times daily
-Hold Motrin PM 200-38 mg Benadryl
-Hold Mobic 15 mg daily
#GERD-continue omeprazole 20 mg daily
DVT prophylaxis
SCDs; start pharm ppx when ok with neurology
DNR per
PT/OT rec acute rehab; would need PMNR eval friday
General: Lethargic at times
HEENT: Normocephalic and Atraumatic
Respiratory: Clear to Auscultation
Cardiac: Regular Rhythm and S1/S2
GI: Soft and Nondistended
Musculoskeletal: No Edema
Neuro: Able to follow some directions,forgetful
Psych: Calm
Anticipated Discharge: > 48 hours
Subjective/Interval History
-
Date of Service: May 23, 2024
Denies pain
Objective Data
-
Vital Signs:
Vital Signs
Temp Pulse Resp BP Pulse Ox
98.9 F 84 21 130/76 97
05/23/24 11:49 05/23/24 11:49 05/23/24 11:49 05/23/24 11:49 05/23/24 11:49
I&O
05/22/24 05/23/24 05/24/24
06:59 06:59 06:59
Intake Total 980 / 980
Output Total 1230 / 1230
Balance -250 / -250
[2024-05-23] MEDS: LIPITOR 20 MG PO (17:09)
[2024-05-23] MEDS: NEURONTIN 300 MG PO (22:43)
[2024-05-24 03:31] VITALS: BP 135/84
[2024-05-24 06:20] LABS: Hematocrit 35.6 % (39.0-52.0); Mean Corp Hgb Conc. 33.7 g/dL (33.0-37.0); Mean Corpuscular Hgb 29.3 pg (27.0-31.0); Mean Corpuscular Volume 86.8 fL (80.0-94.0); Platelet Count 192 10^3/uL (130-400); Red Cell Dist. Width 14.4 % (11.5-14.5)
[2024-05-24 06:46] LABS: Blood Urea Nitrogen 26 mg/dl (9-20); Calcium 8.4 mg/dl (8.4-10.2); Carbon Dioxide 28 mmol/L (22-30); Chloride 102 mmol/L (98-107); Estimated Creatinine Clearance 47 ml/min; Glucose 103 mg/dl (70-99); Potassium 4.1 mmol/L (3.5-5.1); Sodium 138 mmol/L (135-145); eGFR > 60.00
[2024-05-24 08:00] VITALS: BP 140/89
[2024-05-24] MEDS: KEPPRA 750 MG IV ×2 (08:09→19:40)
[2024-05-24] MEDS: LOW STRENGTH ASPIRIN 81 MG PO (08:09)
[2024-05-24] MEDS: NICODERM TRANSDERMAL 21 MG TRANSDERM (08:09)
[2024-05-24] MEDS: NSS (PRESERVATIVE FREE) 10 ML IV (08:10)
[2024-05-24] MEDS: PROTONIX IV 40 MG IV (08:10)
[2024-05-24] MEDS: SPIRIVA RESPIMAT 2.5 MCG 2 PUFF INH (08:42)
--- NOTE | 2024-05-24 09:09 | W.PN.HOSP.TC ---
Addendum entered and electronically signed by Andrew Jaramillo MD 05/24/24 23:38:
Attending Addendum-
I saw and evaluated the patient. I reviewed the resident�s note and agree with findings and plan as documented in the resident�s note. Sub: much more alert. denies pain. Denies neuro deficits. Seen with family present including /POA. H/O from
. No further seizure activity. Has no complaints. Full 12 point ROS reviewed and negative except as documented Exam: Vitals reviewed in chart GEN-NAD heart RRR lungs clear abd soft LE no edema Neuro follows commands MS 09/06 AAO x 3
Plan:
#Acute stroke with acute seizure-NEW
#Metabolic acidosis-resolved
-neurology input appreciated
-EEG completed
-MRI brain without contrast 05/20-Small acute lacunar infarct of the left cerebellum
-2D echo- 05/24- Mildly reduced left ventricular systolic function. Global hypokinesis. LV ejection fraction is 45-50%
-switch to PO Keppra 750 mg twice daily
-Speech swallow-pureed
-Consult PMnR
-cont asa
-cont statin
-event monitor as OP
# HFmrEF- NEW
- not in AE
- c/s cards for eval
# Dysphagia
- cont IDDSI-4 pureed
#COPD on chronic azithromycin
-not in AE
-Continue Incruse Ellipta
-Patient on chronic azithromycin to 50 mg p.o. every 48 H
#Nicotine abuse
63-year 1 pack/day smoker
-NicoDerm 21 mg transdermal patch
#HLD
-Check lipid profile- LDL 70
-Continue atorvastatin 20 mg
#Neuropathy bilateral feet
-Continue gabapentin
#GERD-continue omeprazole 20 mg daily
DVT prophylaxis
SCDs
DNR per
Time spent coordinating care, review of plan of care with resident, personally reviewed records in EMR, med rec, consults, notes, labs, radiology, d/w nursing and � 54 mins
Original Note:
Today's Communication/Plan
-
.
Assessment / Plan
Assessment / Plan
# Acute Ischemic Stroke with Sz
- Appreciate Neuro Recs
-EEG completed
-MRI brain without contrast 05/20-Small acute lacunar infarct of the left cerebellum.
-CTA head/neck no LVO, dissection, malformations or aneurysms.
-Repeat CT 05/21-Stable examination compared to prior.
-2d Echo (05/24):No intracardiac mass or thrombus formation seen.Global hypokinesis. LV
ejection fraction is 45-50%.
- Might benefit from Holter monitor
- Continue Keppra 750 mg twice daily
- Speech swallow eval-currently on pur�ed. Advance diet as suitable per speech.
- ASA restarted; atorvastatin restarted
- Should not drive for 6 months, should be sz free
#Leukocytosis (resolved)
- Likely reactive leukocytosis
#Metabolic acidosis (resolved)
- BMP in AM
# Hypomagnesemia (resolved)
#COPD on chronic azithromycin
-Continue Incruse Ellipta
-Patient on chronic azithromycin to 50 mg p.o. every 48 H
#Nicotine abuse
-63-year 1 pack/day smoker
-NicoDerm 21 mg transdermal patch
#HLD
-lipid profile- LDL 70
-Continue atorvastatin 20 mg every afternoon
#Neuropathy bilateral feet
-Continue gabapentin 300 mg at bedtime when more awake
-Hold Motrin 400 mg 3 times daily
-Hold Motrin PM 200-38 mg Benadryl
-Hold Mobic 15 mg daily
#GERD-
- continue omeprazole 20 mg daily
DVT prophylaxis
SCDs; start pharm ppx when ok with neurology
DNR per
PT/OT rec acute rehab; pending PMNR eval
Anticipated Discharge: Within 24 hours
Subjective/Interval History
-
Date of Service: May 24, 2024
Patient seen and examined while resting comfortably in bed, after just having used the commode. Patient has no acute complaints this morning, however, questions why he feels like he is 'losing his balance'. Patient endorses feeling off balance for
approximately 1 month. Patient denies feeling lightheaded, room spinning dizziness, chest pain, shortness of breath. Patients family today endorses that the patient has been speaking and acting as if at his baseline prior to event and admission.
Objective Data
-
Labs:
Laboratory Results
05/24/24
05:54
WBC 9.0
Hgb 12.0 L
Hct 35.6 L
Plt Count 192
Sodium 138
Potassium 4.1
Chloride 102
Carbon Dioxide 28
BUN 26 H
Creatinine 1.1
Glucose 103 H
Calcium 8.4
Vital Signs:
Vital Signs
Temp Pulse Resp BP Pulse Ox
98.0 F 89 14 140/89 96
05/24/24 08:00 05/24/24 08:00 05/24/24 08:00 05/24/24 08:00 05/24/24 08:00
I&O
05/23/24 05/24/24 05/25/24
06:59 06:59 06:59
Intake Total 780 / 780
Output Total 200 / 200
Balance 580 / 580
Review of Systems
-
History Source: Patient
Constitutional: Reports No Symptoms
Respiratory: Reports No Symptoms
Cardiac: Reports No Symptoms
Abdomen/GI: Reports No Symptoms
Musculoskeletal: Reports No Symptoms
Neuro: Reports Other (feeling of 'off-balance')
Physical Exam
-
General: No Apparent Distress, Comfortable and Conversant
HEENT: Normocephalic and Atraumatic
Respiratory: Clear to Auscultation
Cardiac: Regular Rhythm and S1/S2
GI: Soft and Nontender
Musculoskeletal: No Clubbing, No Cyanosis and No Edema
Skin: Warm
Neuro: Awake, Alert, AO x 3 and Nonfocal/Grossly Intact (motor strength 4-5/5 in all extremities, symmetrical)
Psych: Calm
Data Reviewed
-
Medical Tests (Nuc Med, Echo etc): Report Reviewed by me
Labs: Labs Reviewed by me and Discussed with Patient
[2024-05-24 11:21] VITALS: BP 141/83
[2024-05-24 17:38] VITALS: BP 146/98
[2024-05-24] MEDS: LIPITOR 20 MG PO (18:10)
[2024-05-24 19:15] VITALS: BP 127/82
[2024-05-24] MEDS: NEURONTIN 300 MG PO (21:13)
[2024-05-24 23:50] VITALS: BP 160/91
[2024-05-25] VITALS (7 sets, daily range): BP systolic 123–151; BP diastolic 73–96; PULSE 84–85; BMI 17.7
[2024-05-25 06:28] LABS: Hematocrit 35.2 % (39.0-52.0); Hemoglobin 11.9 g/dL (13.0-18.0); Mean Corp Hgb Conc. 33.8 g/dL (33.0-37.0); Mean Corpuscular Hgb 29.2 pg (27.0-31.0); Mean Corpuscular Volume 86.5 fL (80.0-94.0); Platelet Count 222 10^3/uL (130-400); Red Blood Cell Count 4.07 10^6/uL (4.70-6.10); Red Cell Dist. Width 14.2 % (11.5-14.5); White Blood Cell Count 7.8 10^3/uL (4.8-10.8)
[2024-05-25 06:54] LABS: Blood Urea Nitrogen 22 mg/dl (9-20); Calcium 8.6 mg/dl (8.4-10.2); Carbon Dioxide 28 mmol/L (22-30); Chloride 100 mmol/L (98-107); Estimated Creatinine Clearance 47 ml/min; Glucose 101 mg/dl (70-99); Potassium 4.2 mmol/L (3.5-5.1); Sodium 136 mmol/L (135-145); eGFR > 60.00
[2024-05-25] MEDS: SPIRIVA RESPIMAT 2.5 MCG 2 PUFF INH (07:47)
--- NOTE | 2024-05-25 09:37 | W.PN.HOSP.TC ---
Addendum entered and electronically signed by Andrew Jaramillo MD 05/25/24 22:42:
Attending Addendum-
I saw and evaluated the patient. I reviewed the resident�s note and agree with findings and plan as documented in the resident�s note. Sub: NAEON, Seen with family present including /POA. No further seizure activity. complains of balance issues
on walking. Full 12 point ROS reviewed and negative except as documented Exam: Vitals reviewed in chart GEN-NAD heart RRR lungs clear abd soft LE no edema Neuro follows commands MS 09/06 AAO x 3
Plan:
#Acute stroke with acute seizure-NEW
#Metabolic acidosis-resolved
-neurology input appreciated
-EEG completed
-MRI brain without contrast 05/20-Small acute lacunar infarct of the left cerebellum
-2D echo- 05/24- Mildly reduced left ventricular systolic function. Global hypokinesis. LV ejection fraction is 45-50%
-switch to PO Keppra 750 mg twice daily
-cont asa
-cont statin
-event monitor as OP
- for acute rehab on DC
# HFmrEF- NEW
- not in AE
- OP follow up
# Dysphagia
- -Speech swallow- advance to soft and bite sized
#COPD on chronic azithromycin
-not in AE
-Continue Incruse Ellipta
-Patient on chronic azithromycin to 50 mg p.o. every 48 H
#Nicotine abuse
63-year 1 pack/day smoker
-NicoDerm 21 mg transdermal patch
- counselled re quitting
#HLD
-LDL 70
-Continue atorvastatin 20 mg
#Neuropathy bilateral feet
-Continue gabapentin
#GERD-continue omeprazole 20 mg daily
DVT prophylaxis
SCDs
DNR per
Dispo DC to acute rehab in am
Time spent coordinating care, review of plan of care with resident, personally reviewed records in EMR, med rec, consults, notes, labs, radiology, d/w nursing cards and � 52 mins
Original Note:
Today's Communication/Plan
-
.
Assessment / Plan
Assessment / Plan
# Acute Ischemic Stroke with Sz
- Appreciate Neuro Recs
-EEG completed
-MRI brain without contrast 05/20-Small acute lacunar infarct of the left cerebellum.
-CTA head/neck no LVO, dissection, malformations or aneurysms.
-Repeat CT 05/21-Stable examination compared to prior.
-2d Echo (05/24):No intracardiac mass or thrombus formation seen.Global hypokinesis. LV ejection fraction is 45-50%.
- Might benefit from Holter monitor outpatient
- Continue Keppra 750 mg twice daily
- Speech swallow eval-currently on pur�ed. Advance diet as suitable per speech.
- ASA restarted; atorvastatin restarted
- Should not drive for 6 months, should be sz free
# Asymptomatic Left Ventricular Systolic Dysfunction
- LVEF 45-50%, decreased from prior ECHO in 2021 (50-55%)
- Consult Cards: made an outpatient follow up with the patient.
#Leukocytosis (resolved)
- Likely reactive leukocytosis
#Metabolic acidosis (resolved)
- BMP in AM
# Hypomagnesemia (resolved)
#COPD on chronic azithromycin
-Continue Incruse Ellipta
-Patient on chronic azithromycin to 50 mg p.o. every 48 H
#Nicotine abuse
-63-year 1 pack/day smoker
-NicoDerm 21 mg transdermal patch
#HLD
-lipid profile- LDL 70
-Continue atorvastatin 20 mg QPM
#Neuropathy bilateral feet
-Continue gabapentin 300 mg QHS
-Hold Motrin 400 mg 3 times daily
-Hold Motrin PM 200-38 mg Benadryl
-Hold Mobic 15 mg daily
#GERD-
- continue omeprazole 20 mg daily
DVT prophylaxis
SCDs; start pharm ppx when ok with neurology
DNR per
PT/OT rec acute rehab; pending PMNR eval
Anticipated Discharge: Within 24 hours
Subjective/Interval History
-
Date of Service: May 25, 2024
Patient seen and examined while resting comfortably in bed. Patient denies any acute complaints this morning, still tells me the only thing wrong is that he has a loss of balance. Went over his 2D echo with him this morning and he denies having had
chest pains, shortness of breath dyspnea on exertion (says that he is able to do a lot of yard work without issue), orthopnea (1 pillow at night, unchanged), or lower extremity edema.
Objective Data
-
Labs:
Laboratory Results
05/25/24
05:42
WBC 7.8
Hgb 11.9 L
Hct 35.2 L
Plt Count 222
Sodium 136
Potassium 4.2
Chloride 100
Carbon Dioxide 28
BUN 22 H
Creatinine 1.1
Glucose 101 H
Calcium 8.6
Vital Signs:
Vital Signs
Temp Pulse Resp BP Pulse Ox
98.9 F 72 16 141/91 96
05/25/24 07:05 05/25/24 07:52 05/25/24 07:52 05/25/24 07:05 05/25/24 07:52
I&O
05/24/24 05/25/24 05/26/24
06:59 06:59 06:59
Intake Total 780 / 780 310 / 310
Output Total 200 / 200 850 / 850
Balance 580 / 580 -540 / -540
Review of Systems
-
History Source: Patient
Constitutional: Reports No Symptoms
Respiratory: Reports No Symptoms
Cardiac: Reports No Symptoms
Abdomen/GI: Reports No Symptoms
Musculoskeletal: Reports No Symptoms
Neuro: Reports Other ('off-balance')
Physical Exam
-
General: No Apparent Distress, Comfortable, Conversant and Other
HEENT: Normocephalic, Atraumatic and Moist Mucous Membranes
Respiratory: Clear to Auscultation and Non Labored Respirations
Cardiac: Regular Rhythm and S1/S2
GI: Soft and Nontender
Musculoskeletal: No Clubbing, No Cyanosis and No Edema
Skin: Warm and Dry
Neuro: Awake, Alert, AO x 3 and No Motor Deficits
Psych: Calm
Data Reviewed
-
Medical Tests (Nuc Med, Echo etc): Report Reviewed by me and Discussed with Patient
Labs: Labs Reviewed by me and Discussed with Patient
[2024-05-25] MEDS: KEPPRA 750 MG PO ×2 (09:38→20:15)
[2024-05-25] MEDS: NICODERM TRANSDERMAL 21 MG TRANSDERM (09:39)
[2024-05-25] MEDS: NSS (PRESERVATIVE FREE) 10 ML IV (09:39)
[2024-05-25] MEDS: LOW STRENGTH ASPIRIN 81 MG PO (09:39)
[2024-05-25] MEDS: PROTONIX IV 40 MG IV (09:39)
[2024-05-25] MEDS: ZITHROMAX 250 MG PO (09:40)
--- NOTE | 2024-05-25 11:03 | PTOTSP ---
ST Follow-Up
Pt currently presents with clinical signs of mild oropharyngeal dysphagia characterized by prolonged mastication and bolus formation, reduced bolus formation, and brief occasional throat clearing following ingestion of both solids and liquids.
Recommendations:
- UPGRADE diet to SOFT BITE SIZED SOLIDS (L6) and continue with thin liquids and meds as tolerated.
- Continue with aspiration precautions: small bites, small sips, alternate bites/sips, slow intake rate.
- [employer] to f/u re: diet tolerance, trial upgrades, and to determine if pt would benefit from an instrumental swallow study.
- [employer] to f/u to provide cognitive linguistic tx.
- Pt would benefit from continued [employer] services upon d/c at the next level of care.
--- NOTE | 2024-05-25 17:00 | CON.MD ---
Documented by User: Alicja Fagan PA-C 05/25/24 17:46
Consultation - Medical
-
Referring Provider:�Andrew Nichole
Chief Complaint:�New Onset Seizure
�
History of Present Illness:� Patient is a 78-year-old male with PMH of ( smoking x 62 years, COPD, hyperlipidemia, neuropathy, prostate cancer, s/p prostatectomy who presented to ER after a seizure episode preceded by confusion then convulsion. He
has no prior history of stroke or epilepsy, but a chronic cough. Brain MRI without contrast on 05/20- with small acute lacunar infarct of the left cerebellum. Head CT -small acute lacunar infarct of the left cerebellum and acute/subacute right
parietal lobe cortical hemorrhage.
CTA of the head/neck- with no LVO, dissection, malformations or aneurysms.
-Repeat CT on 05/21-Stable compared to prior.
2d Echo (05/24):No intracardiac mass or thrombus formation seen.Global hypokinesis. LV
ejection fraction is 45-50%. Might benefit from Holter monitor.
EEG:Routine (05/20/2024)�generalized slowing with excessive beta activity. Started on Keppra bid. Patient agitated requiring Ativan. Now mental status much improved. Per neuro: no driving for 6 months.
-Speech swallow evaluation-currently was on pur�ed upgraded to soft and bite sized.
�
Past Medical History:� Smoking x 62 years, COPD, hyperlipidemia, HTN, neuropathy, prostate cancer, s/p prostatectomy
Procedure History:� Bilateral cataract surgery, radical prostatectomy, cholecystectomy, hernia repair, tonsillectomy
Family History:�Sister-spasmodic dysphonia, CHF
�
Social History:�
Functional Level Premorbidly:�Independent with all activities�
Functional Level Currently:�Min assist-Mod assist- transfers, bed mobility-min assist.
�
Tobacco:�smoker of 62 years
Alcohol:�Denies�
Drug use:�Denies�
�
Lives with:�Spouse
24-hour assistance available:�Yes
Number of floors:�multi level
# steps to enter:�4
# steps to second floor:FF
Potential First floor set up:�yes
Driving:�yes
Occupation:�retired - steel manufacture worker
�
�
Allergies:�
Allergy/AdvReac Type Severity Reaction Status Date / Time
No Known Allergies Allergy Verified 05/20/24 12:48
Review of Systems:�
Constitutional: (x) Normal _
Eye: (x) Normal _
Ear/Nose/Throat: (x) Normal _
Respiratory: (x) abNormal _ COPD, smoker of 62 years
Cardiovascular: (x) Normal _
Gastrointestinal: (x) Normal _
Genitourinary: (x) Normal _
Musculoskeletal: (x) Normal _
Integumentary: (x) Normal _
Neurologic: (x) abNormal _ CVA, Seizure, off balance
Psychiatric: (x) Normal _
Endocrine: (x) Normal _
Hematologic/Lymphatic: (x) Normal _
Allergic/Immunologic: (x) Normal _
�
Medications:�
Active Current Visit Medication List
Category Date Time Status
0.9% Sodium Chloride [Nss (Preservative Free)] Med 05/21/24 12:00 Active
10 ml IV DAILY
0.9% Sodium Chloride [Nss (Preservative Free)] Med 05/20/24 19:00 Active
See Protocol IV PRN PRN
Acetaminophen [Tylenol/Feverall] Med 05/21/24 11:51 Active
650 mg RECTAL Q4HPRN PRN
Aspirin Chewable [Low Strength Aspirin] Med 05/23/24 09:00 Active
81 mg PO DAILY
Atorvastatin [Lipitor] Med 05/20/24 18:00 Active
20 mg PO QPM
Azithromycin [Zithromax] Med 05/21/24 08:00 Active
250 mg PO Q48H
Flush (0.9% Sodium Chloride) [Flush (Nss)] Med 05/20/24 19:00 Active
See Dose Instructions IV PER PROTOCOL
Gabapentin [Neurontin] Med 05/20/24 22:00 Active
300 mg PO HS
HydrALAZINE [Apresoline] Med 05/22/24 13:42 Active
5 mg IV Q6HPRN PRN
Levetiracetam [Keppra] Med 05/25/24 08:00 Active
750 mg PO BID
Lorazepam [Ativan] Med 05/20/24 17:47 Active
1 mg IV Q4HPRN PRN
Nicotine [Nicoderm Transdermal] Med 05/20/24 14:00 Active
21 mg TRANSDERM DAILY
Ondansetron Injectable [Zofran] Med 05/20/24 17:47 Active
4 mg IV Q6HPRN PRN
Pantoprazole [Protonix IV] Med 05/21/24 12:00 Active
40 mg IV DAILY
Tiotropium [place] 2.5 Mcg [Spiriva Respimat 2.5 Mcg] Med 05/21/24 08:00 Active
2 puff INH R DAILY
�
Vitals:�
Temp Pulse Resp BP Pulse Ox
98.7 F 84 17 143/87 97
05/25/24 15:07 05/25/24 15:07 05/25/24 15:07 05/25/24 15:07 05/25/24 15:07
Height 5 ft 10 in
Actual Weight 56.064 kg
Body Mass Index (BMI) 17.7
�
Physical Exam:�
General Appearance/Observation: Well-developed, well-nourished individual in no apparent distress.�
Pain/Comfort Assessment:none
Mood/Affect: Appropriate�
�
Integumentary/Operative Site:�
�� Pressure Ulcer Evaluation: absent over heels.�
��
�� Other Type of Wound: absent�
��
Eyes: Conjunctiva/Lids: normal���� Pupils: pupils equal round and reactive to light and Accommodation�
Ears/Nose/Throat: oral mucosa moist,� throat clear.������������ Lips/Teeth/Gums: normal�
Neck: No muscle spasm or tenderness�
Cardiovascular: Heart: regular, no murmur�
Pulses: dorsalis pedis 1+ bilaterally�
Respiratory: Respiratory Effort/Chest Expansion: normal������� Auscultation: Clear to auscultation bilaterally. diminished bilaterally, no wheezes or crackles�
Gastrointestinal: abdomen not tender, no distension, normal abdominal bowel sounds
Genitourinary: No Caro�
Extremities:�Edema: None�Cyanosis: None�Trophic�changes: None
left big toe deviated toward 2nd toe, 2nd toe much longer than the others. bottom of feet cool
Neurology Exam:
Orientation: Alert, Oriented to self, Time, Place�
Memory: Intact for immediate medical concerns
Comprehension: Intact
Two step command: Intact
Naming: Intact
Cranial Nerves:
�� CNII:�Pupillary light reflex: Intact����Visual Field: impaired on the left
�� CN III, IV, : Extraocular muscles: Intact�
�� CN V:�Facial Sensation�at�Forehead: Intact,�Maxilla: Intact,�Mandible: Intact
�� CN VII:�Facial movement: weakness on the right.
�� CN VIII:�Hearing: Normal
�� CN IX/X:�Speech & swallow: Normal, a little hoarse�Position of Uvula: Midline
�� CN XI:�Shoulder shrug: Symmetric
�� CN XII:�Tongue protrusion: Midline
Sensory:
�� Light touch: Intact in bilateral upper and lower extremities
��
�
Reflexes:
�� Biceps: 2+ bilaterally
�� Brachioradialis: 2+ bilaterally
�� Triceps: 2+ bilaterally
�� Patellar: 3+ bilaterally
�� Achilles: 2+ bilaterally
�� Babinski: Down going bilaterally
�� Clonus: None
�� Jazmin: Negative bilaterally�
Cerebellar: Dysmetria/Ataxia: intact with nose to finger coordination bilaterally. Patient with ataxia with ambulation. Not tested
Musculoskeletal:
Motor: (Manual muscle scale 0-5)�
Muscle SA EF WE EE FF FA HF KE DF EHL PF
Right� 5 5 5 5 5 5 5 5 5 5
Left 5 5 5 5 5 5 5 5 5 5
�
Tone: Normal in all extremities�
Range of Motion: Passively within normal limits in all extremities�
�
Lab Results:
Labs
WBC 7.8 10^3/uL (4.8-10.8) 05/25/24 05:42
RBC 4.07 10^6/uL (4.70-6.10) L 05/25/24 05:42
Hgb 11.9 g/dL (13.0-18.0) L 05/25/24 05:42
Hct 35.2 % (39.0-52.0) L 05/25/24 05:42
MCV 86.5 fL (80.0-94.0) 05/25/24 05:42
MCH 29.2 pg (27.0-31.0) 05/25/24 05:42
MCHC 33.8 g/dL (33.0-37.0) 05/25/24 05:42
RDW 14.2 % (11.5-14.5) 05/25/24 05:42
Plt Count 222 10^3/uL (130-400) 05/25/24 05:42
MPV 9.0 fL (7.4-10.4) 05/25/24 05:42
Abs Immat Gran (auto) 0.0 10^3/uL (0-0.05) 05/21/24 04:43
Absolute Neuts (auto) 8.0 10^3/uL (1.4-6.5) H 05/21/24 04:43
Absolute Lymphs (auto) 2.1 10^3/uL (1.2-3.4) 05/21/24 04:43
Absolute Monos (auto) 0.6 10^3/uL (0.1-0.6) 05/21/24 04:43
Absolute Eos (auto) 0.2 10^3/uL (0-0.7) 05/21/24 04:43
Absolute Basos (auto) 0.1 10^3/uL (0-0.2) 05/21/24 04:43
Immature Gran % 0.3 % (0-0.5) 05/21/24 04:43
Neutrophils % 73.0 % (42.2-75.2) 05/21/24 04:43
Lymphocytes % 19.2 % (20.5-51.1) L 05/21/24 04:43
Monocytes % 5.3 % (1.7-9.3) 05/21/24 04:43
Eosinophils % 1.6 % (0-6) 05/21/24 04:43
Basophils % 0.6 % (0-2) 05/21/24 04:43
Nucleated RBC % 0 % (-) 05/21/24 04:43
PT 14.1 Sec (11.4-14.6) 05/20/24 12:23
INR 1.04 05/20/24 12:23
APTT 31.9 Sec (23.4-35.0) 05/20/24 12:23
Sodium 136 mmol/L (135-145) 05/25/24 05:42
Potassium 4.2 mmol/L (3.5-5.1) 05/25/24 05:42
Chloride 100 mmol/L (98-107) 05/25/24 05:42
Carbon Dioxide 28 mmol/L (22-30) 05/25/24 05:42
BUN 22 mg/dl (9-20) H 05/25/24 05:42
Creatinine 1.1 mg/dL (0.7-1.3) 05/25/24 05:42
Estimated Creat Clear 47 ml/min 05/25/24 05:42
eGFR > 60.00 05/25/24 05:42
Glucose 101 mg/dl (70-99) H 05/25/24 05:42
Hemoglobin A1c Cancelled 05/20/24 13:32
Lactic Acid 1.2 mmol/L (0.7-2.0) 05/20/24 16:37
Calcium 8.6 mg/dl (8.4-10.2) 05/25/24 05:42
Magnesium 2.5 mg/dl (1.6-2.3) H 05/21/24 04:43
Total Bilirubin 0.6 mg/dl (0.2-1.3) 05/21/24 04:43
AST 23 U/L (17-59) 05/21/24 04:43
ALT 11 U/L (0-50) 05/21/24 04:43
Alkaline Phosphatase 107 U/L (38-126) 05/21/24 04:43
Creatine Kinase 61 U/L (55-170) 05/20/24 13:24
Troponin I < 0.012 ng/ml 05/20/24 12:23
Total Protein 6.9 g/dl (6.3-8.2) 05/21/24 04:43
Albumin 3.6 g/dl (3.5-5.0) 05/21/24 04:43
Triglycerides Cancelled 05/20/24 13:31
Total Cholesterol Cancelled 05/20/24 13:31
LDL Cholesterol, Calc Cancelled 05/20/24 13:31
VLDL Cholesterol, Calc Cancelled 05/20/24 13:31
HDL Cholesterol Cancelled 05/20/24 13:31
Vitamin B12 581 pg/ml (239-931) 05/21/24 04:43
Prolactin 23.5 ng/ml (3.7-17.9) H 05/20/24 13:24
Urine Color Yellow 05/20/24 16:42
Urine Clarity Clear (Clear) 05/20/24 16:42
Urine pH 6.5 (5.0-9.0) 05/20/24 16:42
Ur Specific [place] 1.015 (<1.030) 05/20/24 16:42
Urine Ketones Negative (Negative) 05/20/24 16:42
Urine Occult Blood Negative (Negative) 05/20/24 16:42
Urine Nitrite Negative (Negative) 05/20/24 16:42
Urine Bilirubin Negative (Negative) 05/20/24 16:42
Urine Urobilinogen Negative (Neg - 1+) 05/20/24 16:42
Ur Leukocyte Esterase Negative (Negative) 05/20/24 16:42
Urine Glucose Negative (Negative) 05/20/24 16:42
Urine Albumin Negative (Neg - Trace) 05/20/24 16:42
Urine Opiates Screen Negative (Negative) 05/20/24 16:42
Ur Buprenorphine Negative (Negative) 05/20/24 16:42
Ur Oxycodone Screen Negative (Negative) 05/20/24 16:42
Urine Methadone Screen Negative (Negative) 05/20/24 16:42
Ur Barbiturates Screen Negative (Negative) 05/20/24 16:42
Ur Tricyclics Screen Negative (Negative) 05/20/24 16:42
Ur Phencyclidine Scrn Negative (Negative) 05/20/24 16:42
Ur Amphetamines Screen Negative (Negative) 05/20/24 16:42
U Methamphetamines Scrn Negative (Negative) 05/20/24 16:42
U Benzodiazepines Scrn Negative (Negative) 05/20/24 16:42
Urine Cocaine Screen Negative (Negative) 05/20/24 16:42
U Marijuana (THC) Screen Negative (Negative) 05/20/24 16:42
SARS-CoV-2 Antigen Negative (Negative) 05/20/24 16:12
POC Glucose 138 mg/dl (70-99) H 05/20/24 12:02
�
Diagnostic Results:�as per HPI�
MRI Brain-�small acute lacunar infarct of the left cerebellum. Head CT -small acute lacunar infarct of the left cerebellum and acute/subacute right parietal lobe cortical hemorrhage.
Assessment: :78-year-old male with smoking history of 62 years presented to ED with confusion found to have acute ischemic stroke on MRI and seizure on EEG. Was started on Keppra.
�
Plan�
�PT/OT to increase independence with ADLs, improve balance, coordination, endurance, strength, mobility, community reintegration, decreased burden of care on others and family education.�
Seizures: Continue Keppra bid. monitor seizures, seizure precautions
CVA: Acute Ischemic Stroke with Sz .Secondary prophylaxis with aspirin 81mg. Awaiting neurology input regarding adding anticoagulant or not. Atorvastatin, and blood pressure control (SBP less than 180 and diastolic less than 100 to participate with
therapy for ischemic stroke). Continue to monitor neurologic status.�
Dysphagia: speech evaluation, oral care protocol, aspiration precautions.� Currently on soft and bite sized. Advance diet as tolerated.�
Dysarthria: speech evaluation�
Asymptomatic Left Ventricular Systolic Dysfunction
- LVEF 45-50%, decreased from prior ECHO in 2021 (50-55%)
- Consult Cards: made an outpatient follow up with the patient.
HTN: continue medications, monitor closely�
HLD: Atorvastatin 80 mg at bedtime
Neuropathy bilateral feet: Gabapentin 300 mg at bedtime. Can titrate as needed and tolerates
COPD: On chronic azithromycin 250mg q 48 hours. Continue Incruse Ellipta
Leukocytosis�7.8�resolved
Anemia: hgb 11/9 -Likely multifactorial.� Continue to monitor.�
Psych: Psychology consult.� Monitor mood, adjust medications as needed.�
Skin: monitor for pressure sores/rashes/lesions.�
Pain: acetaminophen or oxycodone as needed.�
Bowel: Colace and Senna, PRN bisacodyl.�
Bladder: Time void, PVRs, PRN straight cath.�
Tobacco Abuse: 62 years - 1 pack/day smoker. NicoDerm 21 mg transdermal patch smoking cessation counseling. Need to find out why smoking whether it is nicotine withdrawal, habit, or oral fixation.�
GI Prophylaxis: Pantoprazole�20 mg daily
DVT Prophylaxis: Mechanical. Anticoagulant when okay with neurology
Pulmonary: Incentive spirometry�
Safety: Continue to reinforce assistance with all transfers.�
Code Status: DNR�
Dispo�(date/plan/equipment needs): Home with family care.� Social history reviewed.�
�
Functional and Medical Goals:�Modified Independent with ADL�s, ambulation, transfers�
�
Discharge Destination:�Acute inpatient rehab for PT/OT to increase independence with ADLs, improve balance, coordination, endurance, strength, mobility, community reintegration, decreased burden of care on others and family education.�
�
Summary of recommendations:
CVA: Acute Ischemic Stroke with Seizure .Secondary prophylaxis with aspirin 81mg. Awaiting neurology input regarding addition of anticoagulant or not. Atorvastatin, and blood pressure control (SBP less than 180 and diastolic less than 100 to
participate with therapy for ischemic stroke). Continue to monitor neurologic status.�
-Pulmonary: Incentive spirometry�
DVT Prophylaxis: Mechanical.�neurology- Please comment on dvt chemoprophylaxis restrictions. if any
�Neuropathy bilateral feet: Gabapentin 300 mg at bedtime. Can titrate as needed and tolerates
Bowel: Colace and Senna, PRN bisacodyl.�
Bladder: Time void, PVRs, PRN straight cath.�
Thank you for allowing me to care for your patient. Please contact me with any questions or concerns.

Documented by User: Jarred Ding MD 05/25/24 23:07
Consultation - Medical
-
Referring Provider:�Andrew Nichole
Chief Complaint:�Stroke/new Onset Seizure
�
History of Present Illness:� Patient is a 78-year-old right-handed male with PMH of ( smoking x 62 years, COPD, hyperlipidemia, neuropathy, prostate cancer, s/p prostatectomy who presented to ER after a seizure episode preceded by confusion then
convulsion. He has no prior history of stroke or epilepsy, but a chronic cough. Brain MRI without contrast on 05/20- with small acute lacunar infarct of the left cerebellum. Head CT -small acute lacunar infarct of the left cerebellum and
acute/subacute right parietal lobe cortical hemorrhage.
CTA of the head/neck- with no LVO, dissection, malformations or aneurysms.
-Repeat CT on 05/21-Stable compared to prior.
2d Echo (05/24):No intracardiac mass or thrombus formation seen.Global hypokinesis. LV
ejection fraction is 45-50%. Might benefit from Holter monitor.
EEG:Routine (05/20/2024)�generalized slowing with excessive beta activity. Started on Keppra bid. Patient agitated requiring Ativan. Now mental status much improved. Per neuro: no driving for 6 months.
-Speech swallow evaluation-currently was on pur�ed upgraded to soft and bite sized.
�
Past Medical History:� Smoking x 62 years, COPD, hyperlipidemia, HTN, neuropathy, prostate cancer, s/p prostatectomy
Procedure History:� Bilateral cataract surgery, radical prostatectomy, cholecystectomy, hernia repair, tonsillectomy
Family History:�Sister-spasmodic dysphonia, CHF
�
Social History:�
Functional Level Premorbidly:�Independent with all activities�
Functional Level Currently:�Min assist-Mod assist- transfers, bed mobility-min assist.
�
Tobacco:�smoker of 62 years
Alcohol:�Denies�
Drug use:�Denies�
�
Lives with:�Spouse
24-hour assistance available:�Yes
Number of floors:�multi level
# steps to enter:�4
# steps to second floor:FF
Potential First floor set up:�yes
Driving:�yes
Occupation:�retired - steel manufacture worker
�
�
Allergies:�
Allergy/AdvReac Type Severity Reaction Status Date / Time
No Known Allergies Allergy Verified 05/20/24 12:48
Review of Systems:�
Constitutional: (x) abNormal _fatigue
Eye: (x) Normal _
Ear/Nose/Throat: (x) Normal _
Respiratory: (x) abNormal _ COPD, smoker of 62 years
Cardiovascular: (x) Normal _
Gastrointestinal: (x) Normal _
Genitourinary: (x) Normal _
Musculoskeletal: (x) Normal _
Integumentary: (x) Normal _
Neurologic: (x) abNormal _ CVA, Seizure, off balance
Psychiatric: (x) Normal _
Endocrine: (x) Normal _
Hematologic/Lymphatic: (x) Normal _
Allergic/Immunologic: (x) Normal _
�
Medications:�
Active Current Visit Medication List
Category Date Time Status
0.9% Sodium Chloride [Nss (Preservative Free)] Med 05/21/24 12:00 Active
10 ml IV DAILY
0.9% Sodium Chloride [Nss (Preservative Free)] Med 05/20/24 19:00 Active
See Protocol IV PRN PRN
Acetaminophen [Tylenol/Feverall] Med 05/21/24 11:51 Active
650 mg RECTAL Q4HPRN PRN
Aspirin Chewable [Low Strength Aspirin] Med 05/23/24 09:00 Active
81 mg PO DAILY
Atorvastatin [Lipitor] Med 05/20/24 18:00 Active
20 mg PO QPM
Azithromycin [Zithromax] Med 05/21/24 08:00 Active
250 mg PO Q48H
Flush (0.9% Sodium Chloride) [Flush (Nss)] Med 05/20/24 19:00 Active
See Dose Instructions IV PER PROTOCOL
Gabapentin [Neurontin] Med 05/20/24 22:00 Active
300 mg PO HS
HydrALAZINE [Apresoline] Med 05/22/24 13:42 Active
5 mg IV Q6HPRN PRN
Levetiracetam [Keppra] Med 05/25/24 08:00 Active
750 mg PO BID
Lorazepam [Ativan] Med 05/20/24 17:47 Active
1 mg IV Q4HPRN PRN
Nicotine [Nicoderm Transdermal] Med 05/20/24 14:00 Active
21 mg TRANSDERM DAILY
Ondansetron Injectable [Zofran] Med 05/20/24 17:47 Active
4 mg IV Q6HPRN PRN
Pantoprazole [Protonix IV] Med 05/21/24 12:00 Active
40 mg IV DAILY
Tiotropium [place] 2.5 Mcg [Spiriva Respimat 2.5 Mcg] Med 05/21/24 08:00 Active
2 puff INH R DAILY
�
Vitals:�
Temp Pulse Resp BP Pulse Ox
98.7 F 84 17 143/87 97
05/25/24 15:07 05/25/24 15:07 05/25/24 15:07 05/25/24 15:07 05/25/24 15:07
Height 5 ft 10 in
Actual Weight 56.064 kg
Body Mass Index (BMI) 17.7
�
Physical Exam:�
General Appearance/Observation: Well-developed, well-nourished male in no apparent distress.�
Pain/Comfort Assessment:none
Mood/Affect: Appropriate�
�
Integumentary/Operative Site:�
�� Pressure Ulcer Evaluation: absent over heels.�
��
Eyes: Conjunctiva/Lids: normal���� Pupils: pupils equal round and reactive to light and Accommodation�
Ears/Nose/Throat: oral mucosa moist,� throat clear.������������ Lips/Teeth/Gums: normal�
Neck: No muscle spasm or tenderness�
Cardiovascular: Heart: regular, no murmur�
Pulses: dorsalis pedis 1+ bilaterally�
Respiratory: Respiratory Effort/Chest Expansion: normal������� Auscultation: Clear to auscultation bilaterally. diminished bilaterally, no wheezes or crackles�
Gastrointestinal: abdomen not tender, no distension, normal abdominal bowel sounds
Genitourinary: No Caro�
Extremities:�Edema: None�Cyanosis: None�Trophic�changes: None
left big toe deviated toward 2nd toe, 2nd toe much longer than the others. bottom of feet cool
Neurology Exam:
Orientation: Alert, Oriented to self, Time, Place�
Memory: Intact for immediate medical concerns
Comprehension: Intact
Two step command: Intact
Naming: Intact
Cranial Nerves:
�� CNII:�Pupillary light reflex: Intact����Visual Field: impaired on the left
�� CN III, IV, : Extraocular muscles: Intact�
�� CN V:�Facial Sensation�at�Forehead: Intact,�Maxilla: Intact,�Mandible: Intact
�� CN VII:�Facial movement: weakness on the right.
�� CN VIII:�Hearing: Normal
�� CN IX/X:�Speech & swallow: Normal, a little hoarse�Position of Uvula: Midline
�� CN XI:�Shoulder shrug: Symmetric
�� CN XII:�Tongue protrusion: Midline
Sensory:
�� Light touch: Intact in bilateral upper and lower extremities
��
�
Reflexes:
�� Biceps: 2+ bilaterally
�� Brachioradialis: 2+ bilaterally
�� Triceps: 2+ bilaterally
�� Patellar: 3+ bilaterally
�� Achilles: 2+ bilaterally
�� Babinski: Down going bilaterally
�� Clonus: None
�� Jazmin: Negative bilaterally�
Cerebellar: Dysmetria/Ataxia: intact with nose to finger coordination bilaterally. Patient with ataxia with ambulation. Not tested
Musculoskeletal:Motor: (Manual muscle scale 0-5)�
Muscle SA EF WE EE FF FA HF KE DF EHL PF
Right� 5 5 5 5 5 5 5 5 5 5
Left 5 5 5 5 5 5 5 5 5 5
�
Tone: Normal in all extremities�
Range of Motion: Passively within normal limits in all extremities�
�
Lab Results:
Labs
WBC 7.8 10^3/uL (4.8-10.8) 05/25/24 05:42
RBC 4.07 10^6/uL (4.70-6.10) L 05/25/24 05:42
Hgb 11.9 g/dL (13.0-18.0) L 05/25/24 05:42
Hct 35.2 % (39.0-52.0) L 05/25/24 05:42
MCV 86.5 fL (80.0-94.0) 05/25/24 05:42
MCH 29.2 pg (27.0-31.0) 05/25/24 05:42
MCHC 33.8 g/dL (33.0-37.0) 05/25/24 05:42
RDW 14.2 % (11.5-14.5) 05/25/24 05:42
Plt Count 222 10^3/uL (130-400) 05/25/24 05:42
MPV 9.0 fL (7.4-10.4) 05/25/24 05:42
Abs Immat Gran (auto) 0.0 10^3/uL (0-0.05) 05/21/24 04:43
Absolute Neuts (auto) 8.0 10^3/uL (1.4-6.5) H 05/21/24 04:43
Absolute Lymphs (auto) 2.1 10^3/uL (1.2-3.4) 05/21/24 04:43
Absolute Monos (auto) 0.6 10^3/uL (0.1-0.6) 05/21/24 04:43
Absolute Eos (auto) 0.2 10^3/uL (0-0.7) 05/21/24 04:43
Absolute Basos (auto) 0.1 10^3/uL (0-0.2) 05/21/24 04:43
Immature Gran % 0.3 % (0-0.5) 05/21/24 04:43
Neutrophils % 73.0 % (42.2-75.2) 05/21/24 04:43
Lymphocytes % 19.2 % (20.5-51.1) L 05/21/24 04:43
Monocytes % 5.3 % (1.7-9.3) 05/21/24 04:43
Eosinophils % 1.6 % (0-6) 05/21/24 04:43
Basophils % 0.6 % (0-2) 05/21/24 04:43
Nucleated RBC % 0 % (-) 05/21/24 04:43
PT 14.1 Sec (11.4-14.6) 05/20/24 12:23
INR 1.04 05/20/24 12:23
APTT 31.9 Sec (23.4-35.0) 05/20/24 12:23
Sodium 136 mmol/L (135-145) 05/25/24 05:42
Potassium 4.2 mmol/L (3.5-5.1) 05/25/24 05:42
Chloride 100 mmol/L (98-107) 05/25/24 05:42
Carbon Dioxide 28 mmol/L (22-30) 05/25/24 05:42
BUN 22 mg/dl (9-20) H 05/25/24 05:42
Creatinine 1.1 mg/dL (0.7-1.3) 05/25/24 05:42
Estimated Creat Clear 47 ml/min 05/25/24 05:42
eGFR > 60.00 05/25/24 05:42
Glucose 101 mg/dl (70-99) H 05/25/24 05:42
Hemoglobin A1c Cancelled 05/20/24 13:32
Lactic Acid 1.2 mmol/L (0.7-2.0) 05/20/24 16:37
Calcium 8.6 mg/dl (8.4-10.2) 05/25/24 05:42
Magnesium 2.5 mg/dl (1.6-2.3) H 05/21/24 04:43
Total Bilirubin 0.6 mg/dl (0.2-1.3) 05/21/24 04:43
AST 23 U/L (17-59) 05/21/24 04:43
ALT 11 U/L (0-50) 05/21/24 04:43
Alkaline Phosphatase 107 U/L (38-126) 05/21/24 04:43
Creatine Kinase 61 U/L (55-170) 05/20/24 13:24
Troponin I < 0.012 ng/ml 05/20/24 12:23
Total Protein 6.9 g/dl (6.3-8.2) 05/21/24 04:43
Albumin 3.6 g/dl (3.5-5.0) 05/21/24 04:43
Triglycerides Cancelled 05/20/24 13:31
Total Cholesterol Cancelled 05/20/24 13:31
LDL Cholesterol, Calc Cancelled 05/20/24 13:31
VLDL Cholesterol, Calc Cancelled 05/20/24 13:31
HDL Cholesterol Cancelled 05/20/24 13:31
Vitamin B12 581 pg/ml (239-931) 05/21/24 04:43
Prolactin 23.5 ng/ml (3.7-17.9) H 05/20/24 13:24
Urine Color Yellow 05/20/24 16:42
Urine Clarity Clear (Clear) 05/20/24 16:42
Urine pH 6.5 (5.0-9.0) 05/20/24 16:42
Ur Specific Adams 1.015 (<1.030) 05/20/24 16:42
Urine Ketones Negative (Negative) 05/20/24 16:42
Urine Occult Blood Negative (Negative) 05/20/24 16:42
Urine Nitrite Negative (Negative) 05/20/24 16:42
Urine Bilirubin Negative (Negative) 05/20/24 16:42
Urine Urobilinogen Negative (Neg - 1+) 05/20/24 16:42
Ur Leukocyte Esterase Negative (Negative) 05/20/24 16:42
Urine Glucose Negative (Negative) 05/20/24 16:42
Urine Albumin Negative (Neg - Trace) 05/20/24 16:42
Urine Opiates Screen Negative (Negative) 05/20/24 16:42
Ur Buprenorphine Negative (Negative) 05/20/24 16:42
Ur Oxycodone Screen Negative (Negative) 05/20/24 16:42
Urine Methadone Screen Negative (Negative) 05/20/24 16:42
Ur Barbiturates Screen Negative (Negative) 05/20/24 16:42
Ur Tricyclics Screen Negative (Negative) 05/20/24 16:42
Ur Phencyclidine Scrn Negative (Negative) 05/20/24 16:42
Ur Amphetamines Screen Negative (Negative) 05/20/24 16:42
U Methamphetamines Scrn Negative (Negative) 05/20/24 16:42
U Benzodiazepines Scrn Negative (Negative) 05/20/24 16:42
Urine Cocaine Screen Negative (Negative) 05/20/24 16:42
U Marijuana (THC) Screen Negative (Negative) 05/20/24 16:42
SARS-CoV-2 Antigen Negative (Negative) 05/20/24 16:12
POC Glucose 138 mg/dl (70-99) H 05/20/24 12:02
�
Diagnostic Results:�as per HPI�
MRI Brain-�small acute lacunar infarct of the left cerebellum. Head CT -small acute lacunar infarct of the left cerebellum and acute/subacute right parietal lobe cortical hemorrhage.
Assessment:
78-year-old right-handed male with smoking history of 62 years with small acute lacunar infarct of the left cerebellum and acute/subacute right parietal lobe cortical hemorrhage and seizure on Keppra with ADL, ambulatory, and swallow dysfunction..
�
Plan�
�PT/OT to increase independence with ADLs, improve balance, coordination, endurance, strength, mobility, community reintegration, decreased burden of care on others and family education.�
Seizure: Keppra bid. monitor seizures, seizure precautions driving restrictions per neurology.
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 Awaiting neurology input regarding adding anticoagulant or not. Atorvastatin, and blood pressure control (SBP
less than 140 and diastolic less than 90 to participate with therapy with component of cortical hemorrhage). Continue to monitor neurologic status.�
Dysphagia: speech evaluation, oral care protocol, aspiration precautions.� Currently on soft and bite sized. Advance diet as tolerated.�
Dysarthria: speech evaluation�
Asymptomatic Left Ventricular Systolic Dysfunction
- LVEF 45-50%, decreased from prior ECHO in 2021 (50-55%)
- Consult Cards: made an outpatient follow up with the patient.
HTN: continue medications, monitor closely�
HLD: Atorvastatin 80 mg at bedtime
Neuropathy bilateral feet: Gabapentin 300 mg at bedtime. Can titrate as needed and tolerates
COPD: On chronic azithromycin 250mg q 48 hours. Continue Incruse Ellipta
Leukocytosis�7.8�resolved
Anemia: hgb 11/9 -Likely multifactorial.� Continue to monitor.�
Psych: Psychology consult.� Monitor mood, adjust medications as needed.�
Skin: monitor for pressure sores/rashes/lesions.�
Pain: acetaminophen or oxycodone as needed.�
Bowel: Colace and Senna, PRN bisacodyl.�
Bladder: Time void, PVRs, PRN straight cath.�
Tobacco Abuse: 62 years - 1 pack/day smoker. NicoDerm 21 mg transdermal patch smoking cessation counseling. Need to find out why smoking whether it is nicotine withdrawal, habit, or oral fixation.�
GI Prophylaxis: Pantoprazole�20 mg daily
DVT Prophylaxis: Mechanical. Anticoagulant when okay with neurology
Pulmonary: Incentive spirometry�
Safety: Continue to reinforce assistance with all transfers.�
Code Status: DNR�
Dispo�(date/plan/equipment needs): Home with family care.� Social history reviewed.�
Functional and Medical Goals:�Modified Independent with ADL�s, ambulation, transfers�
�
Discharge Destination:�Acute inpatient rehab for PT/OT to increase independence with ADLs, improve balance, coordination, endurance, strength, mobility, community reintegration, decreased burden of care on others and family education.�
�
Summary of recommendations:
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 Awaiting neurology input regarding adding anticoagulant or not. Atorvastatin, and blood pressure control (SBP
less than 140 and diastolic less than 90 to participate with therapy with component of cortical hemorrhage). Continue to monitor neurologic status.�
DVT Prophylaxis: Mechanical.�neurology- Please comment on dvt chemoprophylaxis restrictions. if any
�Neuropathy bilateral feet: Gabapentin 300 mg at bedtime. Can titrate as needed and tolerates
Bowel: Colace and Senna, PRN bisacodyl.�
Bladder: Time void, PVRs, PRN straight cath.�
Code Status: DNR�
Attending Statement:
I saw and examined the patient today. Reviewed care plan with patient, therapy, nursing, and physician human services assistant. I agree with the above subjective and physical exam, and plan as documented by ALEENA Fagan with adjustments made as necessary.
Overall patient with some motor control and balance concerns as well as mild dysphagia. Await neurology input regarding anticoagulation and DVT chemoprophylaxis. Patient wondering if neurology has put in for him to stop driving with his seizure.
Thank you for allowing me to care for your patient. Please contact me with any questions or concerns.
[2024-05-25] MEDS: LIPITOR 20 MG PO (17:26)
[2024-05-25] MEDS: NEURONTIN 300 MG PO (21:13)
--- NOTE | 2024-05-26 02:12 | DOWNTIME ---
There was a [employer] Downtime on 05/26/2024 from 0100 to 05/26/2023 at 0205 . Downtime documentation of patient's care, including medication administrations, has been reconciled in the electronic record per guidelines. Refer to the
patient's paper chart under the miscellaneous tab to see printed paper medication records and downtime forms.
[2024-05-26 06:00] VITALS: BMI 17.4
[2024-05-26 06:25] LABS: Hematocrit 37.8 % (39.0-52.0); Hemoglobin 12.8 g/dL (13.0-18.0); Mean Corp Hgb Conc. 33.9 g/dL (33.0-37.0); Mean Corpuscular Volume 85.5 fL (80.0-94.0); Mean Platelet Volume 8.7 fL (7.4-10.4); Platelet Count 258 10^3/uL (130-400); Red Blood Cell Count 4.42 10^6/uL (4.70-6.10); Red Cell Dist. Width 14.1 % (11.5-14.5); White Blood Cell Count 9.1 10^3/uL (4.8-10.8)
[2024-05-26 06:48] LABS: Blood Urea Nitrogen 26 mg/dl (9-20); Carbon Dioxide 30 mmol/L (22-30); Chloride 100 mmol/L (98-107); Estimated Creatinine Clearance 40 ml/min; Glucose 105 mg/dl (70-99); Potassium 4.3 mmol/L (3.5-5.1); Sodium 137 mmol/L (135-145); eGFR > 60.00
[2024-05-26 07:35] VITALS: BP 152/98
[2024-05-26] MEDS: SPIRIVA RESPIMAT 2.5 MCG 2 PUFF INH (07:40)
[2024-05-26] MEDS: KEPPRA 750 MG PO ×2 (08:42→21:31)
[2024-05-26] MEDS: NSS (PRESERVATIVE FREE) 10 ML IV (08:42)
[2024-05-26] MEDS: NICODERM TRANSDERMAL 21 MG TRANSDERM (08:42)
[2024-05-26] MEDS: PROTONIX IV 40 MG IV (08:42)
[2024-05-26] MEDS: LOW STRENGTH ASPIRIN 81 MG PO (08:43)
--- NOTE | 2024-05-26 08:46 | W.PN.HOSP.TC ---
Addendum entered and electronically signed by Andrew Jaramillo MD 05/26/24 23:25:
Attending Addendum-
I saw and evaluated the patient. I reviewed the resident�s note and agree with findings and plan as documented in the resident�s note. Sub: DAVID, continues to complain of balance issues on walking. Full 12 point ROS reviewed and negative except as
documented Exam: Vitals reviewed in chart GEN-NAD heart RRR lungs clear abd soft LE no edema Neuro follows commands MS 5 AAO x 3
Plan:
#Acute stroke with associated acute seizure
#Metabolic acidosis-resolved
-neurology input appreciated
-EEG completed
-MRI brain without contrast 05/20-Small acute lacunar infarct of the left cerebellum
-2D echo- 05/24- Mildly reduced left ventricular systolic function. Global hypokinesis. LV ejection fraction is 45-50%
-cont PO Keppra 750 mg twice daily
-cont asa
-cont statin
-event monitor as OP
- for acute rehab on DC
# HFmrEF- NEW
- not in AE
- OP cards follow up
# Dysphagia
- -Speech swallow- advanced to soft and bite sized
#COPD on chronic azithromycin
-not in AE
-Continue Incruse Ellipta
-Patient on chronic azithromycin to 50 mg p.o. every 48 H
#Nicotine abuse
63-year 1 pack/day smoker
-NicoDerm 21 mg transdermal patch
- counselled re quitting
#HLD
-LDL 70
-Continue atorvastatin 20 mg
#Neuropathy bilateral feet
-Continue gabapentin
#GERD-continue omeprazole 20 mg daily
DVT prophylaxis
SCDs
DNR per
Dispo DC to acute rehab in am
Time spent coordinating care, review of plan of care with resident, personally reviewed records in EMR, med rec, consults, notes, labs, radiology, d/w nursing pmnr � 51 mins
Original Note:
Today's Communication/Plan
-
.
Assessment / Plan
Assessment / Plan
# Acute Ischemic Stroke with Sz
- Appreciate Neuro Recs
-EEG completed
-MRI brain without contrast 05/20-Small acute lacunar infarct of the left cerebellum.
-CTA head/neck no LVO, dissection, malformations or aneurysms.
-Repeat CT 05/21-Stable examination compared to prior.
-2d Echo (05/24):No intracardiac mass or thrombus formation seen.Global hypokinesis. LV ejection fraction is 45-50%.
- Might benefit from Holter monitor outpatient
- Continue Keppra 750 mg twice daily
- Speech swallow eval-currently on soft and bite sized. Advance diet as suitable per speech.
- ASA restarted; atorvastatin restarted
- Should not drive for 6 months, should be sz free
- PMNR: discharge to acute rehab; auth approved, d/c on 05/27
# Asymptomatic Left Ventricular Systolic Dysfunction
- LVEF 45-50%, decreased from prior ECHO in 2021 (50-55%)
- Consult Cards: made an outpatient follow up with the patient.
#Leukocytosis (resolved)
- Likely reactive leukocytosis
#Metabolic acidosis (resolved)
- BMP in AM
# Hypomagnesemia (resolved)
#COPD on chronic azithromycin
-Continue Incruse Ellipta
-Patient on chronic azithromycin to 50 mg p.o. every 48 H
#Nicotine abuse
-63-year 1 pack/day smoker
-NicoDerm 21 mg transdermal patch
#HLD
-lipid profile- LDL 70
-Continue atorvastatin 20 mg QPM
#Neuropathy bilateral feet
-Continue gabapentin 300 mg QHS
-Hold Motrin 400 mg 3 times daily
-Hold Motrin PM 200-38 mg Benadryl
-Hold Mobic 15 mg daily
#GERD-
- continue omeprazole 20 mg daily
DVT prophylaxis
SCDs; start pharm ppx when ok with neurology
DNR per
Anticipated Discharge: Within 24 hours
Subjective/Interval History
-
Date of Service: May 26, 2024
Patient seen and examined while resting comfortably in bed. Patient's only complaint continues to be loss of balance. Patient also spoke to me about change in vision this morning, but on further questioning notes that this has been a chronic issue,
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 Additionally, patient denies chest pains, shortness of breath, abdominal pain, lower extremity edema.
Objective Data
-
Labs:
Laboratory Results
05/26/24
05:40
WBC 9.1
Hgb 12.8 L
Hct 37.8 L
Plt Count 258
Sodium 137
Potassium 4.3
Chloride 100
Carbon Dioxide 30
BUN 26 H
Creatinine 1.2
Glucose 105 H
Calcium 9.0
Vital Signs:
Vital Signs
Temp Pulse Resp BP Pulse Ox
97.7 F 72 16 152/98 94
05/26/24 07:35 05/26/24 07:43 05/26/24 07:43 05/26/24 07:35 05/26/24 07:35
I&O
05/25/24 05/26/24 05/27/24
06:59 06:59 06:59
Intake Total 310 / 310 1380 / 1380
Output Total 850 / 850 400 / 400
Balance -540 / -540 980 / 980
Review of Systems
-
History Source: Patient
Constitutional: Reports No Symptoms
EENT: Reports No Symptoms Reported
Respiratory: Reports No Symptoms
Cardiac: Reports No Symptoms
Abdomen/GI: Reports No Symptoms
Musculoskeletal: Reports No Symptoms
Neuro: Reports Other ('loss of balance')
Physical Exam
-
General: No Apparent Distress, Comfortable and Conversant
HEENT: Normocephalic, Atraumatic and Other (extraocular movements intact bilaterally,; cranial nerves grossly intact and symmetric)
Respiratory: Clear to Auscultation
Cardiac: Regular Rhythm and S1/S2
GI: Soft and Nontender
Musculoskeletal: No Clubbing, No Cyanosis and No Edema
Skin: Warm and Dry
Neuro: Awake, Alert, Oriented, No Motor Deficits and Other (5/5 strength in all 4 extremities)
Psych: Calm
Data Reviewed
-
Labs: Labs Reviewed by me and Discussed with Patient
[2024-05-26 15:07] VITALS: BP 136/84; PULSE 78
--- NOTE | 2024-05-26 15:42 | CM ---
Addendum entered by Brooke Riggs 05/26/24 16:35:
CM reviewed voicemail from Karen at [facility]- auth approved 05/27-06/02, auth number [id number], next review 06/02, phone for updates [phone]. Updated to Vahe at [facility]
Plan; Sp tomorrow, auth approved.
Original Note:
CM reviewed chart, [facility] able to accept tomorrow pending insurance authorization. Call to , will need to submit to [employer] for approval, pending auth [id number]. CM placed call to patients , discussed if auth is denied,
peer to peer can be conducted, then member appeal. CM will await return call from insurance regarding auth approval.
[place]; Sp Acute Rehab tomorrow 05/27/24-auth under review by [employer] Operator [employer]inist
[2024-05-26 15:49] VITALS: BP 129/86
[2024-05-26] MEDS: LIPITOR 20 MG PO (17:32)
[2024-05-26] MEDS: NEURONTIN 300 MG PO (21:31)
[2024-05-26 23:00] VITALS: BP 138/83
[2024-05-27 06:00] VITALS: BMI 17.4
[2024-05-27] MEDS: SPIRIVA RESPIMAT 2.5 MCG 2 PUFF INH (07:18)
[2024-05-27 07:30] VITALS: BP 124/91
[2024-05-27] MEDS: PROTONIX IV 40 MG IV (09:20)
[2024-05-27] MEDS: NSS (PRESERVATIVE FREE) 10 ML IV (09:20)
[2024-05-27] MEDS: NICODERM TRANSDERMAL 21 MG TRANSDERM (09:23)
[2024-05-27] MEDS: KEPPRA 750 MG PO (09:23)
[2024-05-27] MEDS: LOW STRENGTH ASPIRIN 81 MG PO (09:23)
[2024-05-27] MEDS: ZITHROMAX 250 MG PO (09:23)
--- NOTE | 2024-05-27 11:56 | W.PN.HOSP.TC ---
Addendum entered and electronically signed by Andrew Jaramillo MD 05/27/24 22:44:
Attending Addendum-
I saw and evaluated the patient. I reviewed the resident�s note and agree with findings and plan as documented in the resident�s note. Sub: NAEON, gait improved. Full 12 point ROS reviewed and negative except as documented Exam: Vitals reviewed in
chart GEN-NAD heart RRR lungs clear abd soft LE no edema Neuro follows commands MS 5 AAO x 3
Plan:
#Acute stroke with associated acute seizure
#Metabolic acidosis-resolved
-neurology input appreciated
-EEG completed
-MRI brain without contrast 05/20-Small acute lacunar infarct of the left cerebellum
-2D echo- 05/24- Mildly reduced left ventricular systolic function. Global hypokinesis. LV ejection fraction is 45-50%
-cont PO Keppra 750 mg twice daily
-cont asa
-cont statin
-event monitor as OP
-for acute rehab today
# HFmrEF- NEW
- not in AE
- OP cards follow up
# Dysphagia
- -Speech swallow- cont soft and bite sized
#COPD on chronic azithromycin
-not in AE
-Continue Incruse Ellipta
-Patient on chronic azithromycin to 50 mg p.o. every 48 H
#Nicotine abuse
63-year 1 pack/day smoker
-NicoDerm 21 mg transdermal patch
- counselled re quitting
#HLD
-LDL 70
-Continue atorvastatin 20 mg
#Neuropathy bilateral feet
-Continue gabapentin
#GERD-continue omeprazole 20 mg daily
DVT prophylaxis
SCDs
DNR per
Dispo DC to acute rehab [facility] today
Time spent coordinating care, DC planning, review of DC plan of care with resident, transition of care, review of records, med rec/scripts sent electronically, consults, notes, d/w consultants, nursing, family, and CM�33 mins
Original Note:
Today's Communication/Plan
-
Discharge to [place]
Assessment / Plan
Assessment / Plan
# Acute Ischemic Stroke with Sz
- Appreciate Neuro Recs
-EEG completed
-MRI brain without contrast 05/20-Small acute lacunar infarct of the left cerebellum.
-CTA head/neck no LVO, dissection, malformations or aneurysms.
-Repeat CT 05/21-Stable examination compared to prior.
-2d Echo (05/24):No intracardiac mass or thrombus formation seen.Global hypokinesis. LV ejection fraction is 45-50%.
- Might benefit from Holter monitor outpatient
- Continue Keppra 750 mg twice daily
- Speech swallow eval-currently on soft and bite sized. Advance diet as suitable per speech.
- ASA restarted; atorvastatin restarted
- Hold chronic NSAID
- Should not drive for 6 months, should be sz free
- PMNR: discharge to acute rehab; auth approved, d/c on 05/27
# Asymptomatic Left Ventricular Systolic Dysfunction
- LVEF 45-50%, decreased from prior ECHO in 2021 (50-55%)
- Consult Cards: made an outpatient follow up with the patient.
#Leukocytosis (resolved)
- Likely reactive leukocytosis
#Metabolic acidosis (resolved)
- BMP in AM
# Hypomagnesemia (resolved)
#COPD on chronic azithromycin
-Continue Incruse Ellipta
-Patient on chronic azithromycin to 50 mg p.o. every 48 H
#Headache
- Tylenol PRN
#Nicotine abuse
-63-year 1 pack/day smoker
-NicoDerm 21 mg transdermal patch
#HLD
-lipid profile- LDL 70
-Continue atorvastatin 20 mg QPM
#Neuropathy bilateral feet
-Continue gabapentin 300 mg QHS
-Hold Motrin 400 mg 3 times daily
-Hold Motrin PM 200-38 mg Benadryl
-Hold Mobic 15 mg daily
#GERD-
- continue omeprazole 20 mg daily
DVT prophylaxis
SCDs; start pharm ppx when ok with neurology
DNR per
Anticipated Discharge: Today
Subjective/Interval History
-
Date of Service: May 27, 2024
Patient seen and examined while sitting up in bed, putting on and buttoning his street clothes. Patient is eager to get to rehab. Patient notes a mild headache this morning, but denies any other acute complaints.
Objective Data
-
Vital Signs:
Vital Signs
Temp Pulse Resp BP Pulse Ox
97.3 F 110 18 124/91 99
05/27/24 07:30 05/27/24 07:30 05/27/24 07:30 05/27/24 07:30 05/27/24 07:30
I&O
05/26/24 05/27/24 05/28/24
06:59 06:59 06:59
Intake Total 1380 / 1380 600 / 600
Output Total 400 / 400
Balance 980 / 980 600 / 600
Review of Systems
-
History Source: Patient
Constitutional: Reports No Symptoms
Respiratory: Reports No Symptoms
Cardiac: Reports No Symptoms
Abdomen/GI: Reports No Symptoms
Musculoskeletal: Reports No Symptoms
Neuro: Reports Headache (mild)
Physical Exam
-
General: No Apparent Distress, Comfortable and Conversant
HEENT: Normocephalic and Atraumatic
Respiratory: Clear to Auscultation
Cardiac: Regular Rhythm and S1/S2
GI: Soft and Nontender
Musculoskeletal: No Clubbing, No Cyanosis and No Edema
Skin: Warm
Neuro: Awake, Alert, Oriented and No Motor Deficits
Psych: Calm
--- NOTE | 2024-05-27 13:02 | CM ---
Pt has been accepted for transfer to [facility] today. Requested report be called at 2:30pm.
[facility] Report: [phone]
[facility]
--- NOTE | 2024-05-27 13:19 | W.DCSUMMARY ---
Addendum entered and electronically signed by Andrew Jaramillo MD 05/27/24 22:44:
Read, reviewed, and agree. See same day progress note for additional details.
Mars Jaramillo MD
Original Note:
Documented by User: Kyree Ramos DO, Resident 05/27/24 16:48
Discharge Summary
Discharge Data
Date of Admission: 05/20/24
Date of Discharge: 05/27/24
Total time spent discharging patient (in min): 35
-
Pending Results: No
Hospital Course
Mook Doran is a 78-year-old male with past medical history of COPD, tobacco use disorder, hyperlipidemia, peripheral neuropathy, GERD, and prostate cancer who presented to the emergency department at [facility] on 05/21/2024. Patient was
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 Upon EMS arrival patient continued to have seizure
activity in his right arm as well as a right gaze. The seizure activity ceased prior to administering any medications in the field, however the patient was left a postictal state, and also had residual weakness following this episode. The
patient's family denied any prior history of seizures or stroke.
ED COURSE
In the emergency department patient was confused and exhibiting left-sided hemineglect. EEG was completed and the patient was started on Keppra. CT of the head revealed only a right parietal calcification with no bleeds. CTA of the head and neck
did not show any abnormalities. Neurology was consulted and the patient was admitted to the ICU for stroke protocol.
HOSPITAL COURSE
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 Patient remained under stroke medical for [address]
did not show any new strokes or bleeding. Over the course of the next 2 days, the patient's mental status greatly improved. Patient's motor function was with 5 out of 5 strength in all 4 extremities and he did not appear to have any residual
deficits from the stroke. Patient's speech and personality was noted to be at baseline per the patient's family. Over this time the patient's diet was slowly advanced, and his medications were slowly reintroduced. Patient was switched to oral
Keppra 750 mg twice daily for seizure prophylaxis. During this time, a echocardiogram was obtained to evaluate for possible etiologies of the embolus. This did not reveal any thrombus in the heart however did note a mildly reduced left ventricular
ejection fraction of 45 to 50% and global hypokinesis. The patient was advised to follow-up with a developer architect on an outpatient basis for this finding. After stabilization, the patient was discharged to [place] acute rehab for physical therapy on
his strength and balance.
DISCHARGE RECOMMENDATIONS
Started oral Keppra 750 mg twice daily for seizure prophylaxis.
Avoid driving until the patient is 6 months seizure-free.
Discharge to acute rehab for physical and Occupational Therapy; patient complained of chronic loss of balance preceding his stroke.
Follow-up with cardiology on an outpatient basis for management of chronic congestive heart failure with mildly reduced ejection fraction.
Follow-up with outpatient primary care provider for further recommendations.
Discharge Plan
-
Patient Disposition: Acute Rehab Facility
Discharge Diagnosis/Procedures: Acute Ischemic Stroke
Post-stroke Seizure
New Asymptomatic Heart Failure with Mildly Reduced Ejection Fraction
Condition: Fair
Diet: Other diet
Additional Diets: IDDSI 6 - Soft and Bite Sized
Activity: As tolerated
Driving Restrictions: Not until seen by your Dr
Referrals:
Tobi Robles PA-C [Family Provider] - in less than 1 week
Prescriptions:
New
levetiracetam 250 mg Tablet
750 mg PO BID Qty: 30 0RF
aspirin 81 mg Tablet,Chewable
81 mg PO DAILY Qty: 30 0RF
Continued
atorvastatin [Lipitor] 20 mg Tablet
20 mg PO QPM
azithromycin 250 mg Tablet
250 mg PO Q48H
gabapentin 300 mg Capsule
300 mg PO HS
omeprazole 20 mg Tablet,Delayed Release (Dr/Ec)
20 mg PO DAILY
Incruse Ellipta 62.5 mcg/actuation Blister With Device
1 inh INHALATION R DAILY
diphenhydramine HCl
38 mg PO HS PRN (Reason: foot pain)
Rx Instructions:
May take AFTER 05/27/24 at 10 pm
Held
meloxicam 15 mg Tablet
15 mg PO DAILY
Hold Instructions: Hold until seen by PCP.
Rx Instructions:
Hold until seen by PCP
Motrin
400 mg PO TID
Hold Instructions: Hold until seen by PCP.
Rx Instructions:
Hold until seen by PCP
Motrin PM
200 mg PO HS PRN (Reason: legpain)
Hold Instructions: Hold until seen by PCP.
Rx Instructions:
takes with bendadryl 38 mg hs
hold unitl seen by PCP
Discharge Orders:
Discharge Patient (As Directed); Ordered 05/27/24
Ordered By: Kyree Ramos
Discharge Date and Time
Discharge Date/Time: 05/27/24 15:12
Print Language: BRUNEIAN

Documented by User: Andrew Jaramillo MD 05/27/24 22:42
Discharge Summary
Discharge Data
Date of Admission: 05/20/24
Date of Discharge: 05/27/24
Discharge Plan
-
Patient Disposition: Acute Rehab Facility
Discharge Diagnosis/Procedures: Acute Ischemic Stroke
Post-stroke Seizure
New Asymptomatic Heart Failure with Mildly Reduced Ejection Fraction
Condition: Fair
Diet: Other diet
Additional Diets: IDDSI 6 - Soft and Bite Sized
Activity: As tolerated
Driving Restrictions: Not until seen by your Dr
Referrals:
Tobi Robles PA-C [Family Provider] - in less than 1 week
Prescriptions:
New
levetiracetam 250 mg Tablet
750 mg PO BID Qty: 30 0RF
aspirin 81 mg Tablet,Chewable
81 mg PO DAILY Qty: 30 0RF
Continued
atorvastatin [Lipitor] 20 mg Tablet
20 mg PO QPM
azithromycin 250 mg Tablet
250 mg PO Q48H
gabapentin 300 mg Capsule
300 mg PO HS
omeprazole 20 mg Tablet,Delayed Release (Dr/Ec)
20 mg PO DAILY
Incruse Ellipta 62.5 mcg/actuation Blister With Device
1 inh INHALATION R DAILY
diphenhydramine HCl
38 mg PO HS PRN (Reason: foot pain)
Rx Instructions:
May take AFTER 05/27/24 at 10 pm
Held
meloxicam 15 mg Tablet
15 mg PO DAILY
Hold Instructions: Hold until seen by PCP.
Rx Instructions:
Hold until seen by PCP
Motrin
400 mg PO TID
Hold Instructions: Hold until seen by PCP.
Rx Instructions:
Hold until seen by PCP
Motrin PM
200 mg PO HS PRN (Reason: legpain)
Hold Instructions: Hold until seen by PCP.
Rx Instructions:
takes with bendadryl 38 mg hs
hold unitl seen by PCP
Discharge Orders:
Discharge Patient (As Directed); Ordered 05/27/24
Ordered By: Kyree Ramos
Discharge Date and Time
Discharge Date/Time: 05/27/24 15:12
Print Language: BRUNEIAN
[2024-05-27 14:42] VITALS: BP 132/86
== END 2024-05-27 15:12 | DRG 64 ==
LOC: 3 WEST ACU 16:04
PROVIDERS: Clinical Nurse Specialist Family Health; Internal Medicine; ADMITTING PHYSICIAN Student in an Organized Health Care Education/Training Program; ATTENDING PHYSICIAN Family Medicine; CONSULT PHYSICIAN Internal Medicine Critical Care Medicine; CONSULT PHYSICIAN Physical Medicine & Rehabilitation; CONSULT PHYSICIAN Psychiatry & Neurology Neurology; EMERGENCY PHYSICIAN Student in an Organized Health Care Education/Training Program; FAMILY PHYSICIAN Physician Assistant Medical
DX: I63.442 Cerebral infarction due to embolism of left cerebellar artery (principal); G93.41 Metabolic encephalopathy; E87.20 Acidosis, unspecified; G81.94 Hemiplegia, unspecified affecting left nondominant side; I16.1 Hypertensive emergency; I50.20 Unspecified systolic (congestive) heart failure; R64 Cachexia; Z68.1 Body mass index [BMI] 19.9 or less, adult; Z66 Do not resuscitate; I11.0 Hypertensive heart disease with heart failure; R56.9 Unspecified convulsions; F17.210 Nicotine dependence, cigarettes, uncomplicated; J44.9 Chronic obstructive pulmonary disease, unspecified; D64.9 Anemia, unspecified; G62.9 Polyneuropathy, unspecified; K21.9 Gastro-esophageal reflux disease without esophagitis; E78.00 Pure hypercholesterolemia, unspecified; E83.42 Hypomagnesemia; I68.0 Cerebral amyloid angiopathy; J98.4 Other disorders of lung; Z90.79 Acquired absence of other genital organ(s); Z85.46 Personal history of malignant neoplasm of prostate; Z82.49 Family history of ischemic heart disease and other diseases of the circulatory system; Z82.3 Family history of stroke; Z79.899 Other long term (current) drug therapy; Z79.1 Long term (current) use of non-steroidal anti-inflammatories (NSAID); Z11.52 Encounter for screening for COVID-19
CPT/HCPCS: 70450; 70496; 70498; 70551; 71045; 80048; 80053; 80061; 80306; 81003; 82550; 82607; 82962; 83036; 83605; 83735; 84146; 84484; 85025; 85027; 85610; 85730; 87502; 87811; 92523; 92526; 92610; 93005; 93306; 94640; 95816; 96374; 96375; 96376; 97116; 97129; 97163; 97167; 97530; 97535; 99291; Q9967